=== PATIENT | female | born 1955 | race Caucasian/White ===

== ENCOUNTER 2019-09-08 17:36 | Outpatient (CLI) | payer MEDICARE | END 2019-09-08 17:37 | disposition EMS.NT | LOC: EMS 17:36 | PROVIDERS: ATTEND Surgery | DX: S01.81XA Laceration without foreign body of other part of head, initial encounter (principal); W01.0XXA Fall on same level from slipping, tripping and stumbling without subsequent striking against object, initial encounter; Y92.512 Supermarket, store or market as the place of occurrence of the external cause ==

== ENCOUNTER 2019-09-08 19:03 | Emergency (ER) | payer MEDICARE ==
[2019-09-08] MEDS ORDERED: TETANUS/DIPHTHERIA/PERTUSSIS 0.5 ML SYRINGE IM ONE (20:16)
[2019-09-08] MEDS ORDERED: LIDOCAINE 2%-EPI 1:100000 20 ML MDV SUBQ STA (20:16)
--- NOTE | 2019-09-08 20:19 | ED Physician Documentation ---
PD HPI HEAD INJURY - Stated complaint Stated Complaint: HEAD LAC - Chief complaint Chief Complaint: Laceration - History obtained from History obtained from: Patient, Family - History of Present Illness Mechanism of head injury: Fell Where head injury occurred: Home - Additional information Additional information: 63-year-old female presents to the emergency department with a flap V-shaped laceration on the bridge of her nose. She was walking this afternoon and her shoes caught the concrete and she stumbled forward. The abrasion was reportedly caused by her glasses. She had no loss of consciousness. She takes no blood thinners. She denies headache or any change in baseline neck pain. She has no paresthesias BUE. She appears well.Unknown last tetanus. PD PAST MEDICAL HISTORY - Allergies Allergies/Adverse Reactions: Allergies Allergy/AdvReac Type Severity Reaction Status Date / Time No Known Drug Allergies Allergy Verified 09/08/19 19:07 PD ED PE NORMAL - General General: Alert and oriented X 3, No acute distress - HEENT HEENT: PERRL, EOMI, Pharynx benign, Dentition benign, Other (1.5 cm V shaped flap laceration bridge of nares. No epistaxis. No septal hematoma.). No: Atraumatic (Negative for raccoon's eyes or salgado sign. No fluid draining from the ears or nose.) - Neck Neck: Supple, no meningeal sign, No bony TTP, No adenopathy - Cardiac Cardiac: RRR, No murmur - Respiratory Respiratory: No respiratory distress - Derm Derm: Normal color, Warm and dry, Other (1.5 cm V shaped lack to the bridge of the nose.) - Extremities Extremities: No deformity, No tenderness to palpate - Neuro Neuro: Alert and oriented X 3, tail ripper 2-12 intact, No motor deficit, No sensory deficit, Normal speech Eye Opening: Spontaneous Motor: Obeys Commands Verbal: Oriented GCS Score: 15 - Psych Psych: Normal mood Results - Vitals Vitals: Vital Signs - 24 hr 09/08/19 19:07 Temperature 36.5 C Heart Rate 87 Respiratory 16 Rate Blood Pressure 200/96 H O2 Saturation 95 Oxygen O2 Source Room air Procedures - Laceration (location) bridge of nose Wound type: Irregular, Flap Neurovascular status: Sensory intact Anesthesia: Lidocaine 1% with epi Wound Preparation: Chlorhexadine, Irrigated copiously NS Skin layer closure: Nylon (6.0), Sutures - enter # (6) Other: Patient tolerated well, No complications, Neurovascular intact, Dressing applied, Tetanus UTD Complexity: Simple PD MEDICAL DECISION MAKING - ED course Complexity details: reviewed results, d/w patient, d/w family ED course: 63-year-old female here with a laceration to the bridge of her nose after tripping on concrete this afternoon. - Patient has an intact septum and no epistaxis. I have low suspicion for a nasal bridge fracture. She is not anticoagulated and had no loss of consciousness and is neurologically intact. Negative for raccoon's eyes or salgado sign. Defer head CT. - Flap laceration was closed with 5 six-point 0 nylon sutures. I discussed with patient that there may be some loss of viability of the flap.If it turns black or necrotic she is to return to the emergency department for reevaluation peer. Laceration closed in a timely manner and was relatively clean. Defer antibiotics - tetanus updated in the ED Departure - Departure Clinical Impression: Nasal laceration Qualifiers: Encounter type: initial encounter Qualified Code(s): S01.21XA - Laceration without foreign body of nose, initial encounter Fall Qualifiers: Encounter type: initial encounter Qualified Code(s): W19.XXXA - Unspecified fall, initial encounter Record reviewed to determine appropriate education?: Yes Instructions: ED Laceration Sure Close Comments: Chiara I hope you feel better soon. We have placed 5 sutures in the bridge of your nose. These should be removed in 5 to 7 days. Because of the type of laceration that this is there the flap may not be viable.In this case it would turn black and would need to be cut away. In 24 hours you may gently wash your nose with warm soap and water and apply any simple antibiotic ointment Return here if you have fevers redness milky drainage or concerns of infection in the lack.
[2019-09-08] MEDS ORDERED: BACITRACIN ZINC OINT 1 PACKET TOP STA (20:40)
[2019-09-08 20:57] VITALS: BP 164/101
== END 2019-09-08 20:58 | disposition home or self-care (01) ==
LOC: ED 19:03
DX: S01.21XA Laceration without foreign body of nose, initial encounter (principal); W01.0XXA Fall on same level from slipping, tripping and stumbling without subsequent striking against object, initial encounter; Y93.01 Activity, walking, marching and hiking; Y92.009 Unspecified place in unspecified non-institutional (private) residence as the place of occurrence of the external cause; Z23 Encounter for immunization
CPT/HCPCS: 12011; 90471; 99281; 99283

== ENCOUNTER 2019-09-16 18:06 | Emergency (ER) | payer MEDICARE ==
[2019-09-16 18:16] VITALS: BP 159/104
--- NOTE | 2019-09-16 18:30 | ED Physician Documentation ---
PD HPI WOUND RECHECK - Stated complaint Stated Complaint: STITCH REMOVAL - Chief complaint Chief Complaint: Wound - Histroy obtained from History obtained from: Patient (5 sutures placed on the bridge of the nose about a week ago and here for removal. No specific complaints. Its been healing well.) Review of Systems Constitutional: reports: Reviewed and negative Eyes: reports: Reviewed and negative Ears: reports: Reviewed and negative Nose: reports: Reviewed and negative PD PAST MEDICAL HISTORY - Allergies Allergies/Adverse Reactions: Allergies Allergy/AdvReac Type Severity Reaction Status Date / Time No Known Drug Allergies Allergy Verified 09/16/19 18:16 PD ED PE NORMAL - Vitals Vital signs reviewed: Yes - General General: Alert and oriented X 3, No acute distress - HEENT HEENT: PERRL, EOMI, Other (Healing laceration on the bridge of the nose with [address], removed without issue during exam) - Neuro Neuro: Alert and oriented X 3, Normal speech Results - Vitals Vitals: Vital Signs - 24 hr 09/16/19 18:13 Temperature 36.6 C Heart Rate 84 Respiratory 16 Rate Blood Pressure 159/104 H O2 Saturation 97 Oxygen O2 Source Room air Departure - Departure Disposition: 01 Home, Self Care Clinical Impression: Visit for suture removal Condition: Good
== END 2019-09-16 18:30 | disposition home or self-care (01) ==
LOC: ED 18:06
DX: S01.21XD Laceration without foreign body of nose, subsequent encounter (principal); Z48.02 Encounter for removal of sutures

== ENCOUNTER 2019-11-06 08:00 | Outpatient (CLI) | payer MEDICARE ==
[2019-11-06 11:52] LABS: BASOPHILS # (AUTO) 0.1 10^3/uL (0.0-0.1); BASOPHILS % (AUTO) 0.9 %; EOSINOPHILS # (AUTO) 0.2 10^3/uL (0.0-0.7); HGB - HEMOGLOBIN 12.9 g/dL (12.0-16.0); LYMPHOCYTES # (AUTO) 2.1 10^3/uL (1.5-3.5); LYMPHOCYTES % (AUTO) 37.3 %; MEAN CORPUSCULAR HEMOGLOBIN 27.8 pg (27.0-31.0); MEAN CORPUSCULAR HGB CONC 31.2 g/dL (32.0-36.0); MEAN CORPUSCULAR VOLUME 89.2 fL (81.0-99.0); MEAN PLATELET VOLUME 10.8 fL (7.9-10.8); MONOCYTES # (AUTO) 0.6 10^3/uL (0.0-1.0); MONOCYTES % (AUTO) 9.6 %; NEUTROPHILS # (AUTO) 2.7 10^3/uL (1.5-6.6); PLT - PLATELET COUNT 335 10^3/uL (130-450); RED BLOOD COUNT 4.64 10^6/uL (4.20-5.40); RED CELL DISTRIBUTION WIDTH 14.2 % (12.0-15.0); WHITE BLOOD COUNT 5.7 x10^3/uL (4.8-10.8)
[2019-11-06 12:20] LABS: ALBUMIN 3.9 g/dL (3.2-5.5); ALBUMIN/GLOBULIN RATIO 1.1 (1.0-2.2); ALKALINE PHOSPHATASE 78 IU/L (42-121); ALT ALANINE AMINOTRANSFERASE 27 IU/L (10-60); AST ASPARTATE AMINOTRANSFERASE 21 IU/L (10-42); BILIRUBIN,TOTAL 0.8 mg/dL (0.2-1.0); BUN - BLOOD UREA NITROGEN 17 mg/dL (6-20); CALCIUM 8.9 mg/dL (8.5-10.3); CARBON DIOXIDE - CO2 26 mmol/L (21-32); CHLORIDE 106 mmol/L (101-111); CHOL/HDL RATIO 5.8 (<4.4); CHOLESTEROL 294 mg/dL; CREATININE 0.7 mg/dL (0.4-1.0); GLUCOSE 103 mg/dL (70-100); HDL CHOLESTEROL 51 mg/dL; LDL CHOLESTEROL,CALCULATED 215 mg/dL; LDL/HDL RATIO 4.2 (<4.4); SODIUM 140 mmol/L (135-145); TOTAL PROTEIN 7.4 g/dL (6.7-8.2); VLDL CHOLESTEROL 28 mg/dL
== END 2019-11-06 23:59 | disposition home or self-care (01) ==
LOC: LAB.WCP 08:00
PROVIDERS: ATTEND Physician Assistant
DX: I10 Essential (primary) hypertension (principal); E78.5 Hyperlipidemia, unspecified; R35.8 Other polyuria
CPT/HCPCS: 36415; 80053; 80061; 83036; 83721; 85025

== ENCOUNTER 2020-05-19 07:00 | Outpatient (CLI) | payer MEDICARE ==
[2020-05-19 14:08] LABS: ALBUMIN/GLOBULIN RATIO 1.2 (1.0-2.2); ALKALINE PHOSPHATASE 87 IU/L (42-121); ALT ALANINE AMINOTRANSFERASE 26 IU/L (10-60); AST ASPARTATE AMINOTRANSFERASE 21 IU/L (10-42); BILIRUBIN,TOTAL 0.6 mg/dL (0.2-1.0); BUN - BLOOD UREA NITROGEN 23 mg/dL (6-20); CALCIUM 9.1 mg/dL (8.5-10.3); CARBON DIOXIDE - CO2 26 mmol/L (21-32); CHLORIDE 102 mmol/L (101-111); CHOL/HDL RATIO 4.7 (<4.4); CHOLESTEROL 272 mg/dL; CREATININE 0.7 mg/dL (0.4-1.0); GFR - MDRD 84 (>89); GLUCOSE 94 mg/dL (70-100); HDL CHOLESTEROL 58 mg/dL; LDL CHOLESTEROL,CALCULATED 190 mg/dL; LDL/HDL RATIO 3.3 (<4.4); POTASSIUM 4.5 mmol/L (3.5-5.0); SODIUM 138 mmol/L (135-145); TOTAL PROTEIN 7.4 g/dL (6.7-8.2); TRIGLYCERIDES 121 mg/dL; VLDL CHOLESTEROL 24 mg/dL
[2020-05-19 14:21] LABS: ESTIMATED AVERAGE GLUCOSE 120 mg/dL (70-100); HEMOGLOBIN A1c% 5.8 % (4.27-6.07)
== END 2020-05-19 23:59 | disposition home or self-care (01) ==
LOC: LAB.WCP 07:00
PROVIDERS: ATTEND Family Medicine
DX: I10 Essential (primary) hypertension (principal); E78.5 Hyperlipidemia, unspecified; R35.8 Other polyuria
CPT/HCPCS: 36415; 80053; 80061; 83036; 83721

== ENCOUNTER 2020-10-05 08:00 | Outpatient (CLI) | payer MEDICARE ==
[2020-10-05 11:58] LABS: BASOPHILS # (AUTO) 0.1 10^3/uL (0.0-0.1); BASOPHILS % (AUTO) 0.8 %; EOSINOPHILS # (AUTO) 0.3 10^3/uL (0.0-0.7); EOSINOPHILS % (AUTO) 4.2 %; HCT - HEMATOCRIT 41.6 % (37.0-47.0); HGB - HEMOGLOBIN 12.7 g/dL (12.0-16.0); LYMPHOCYTES # (AUTO) 2.2 10^3/uL (1.5-3.5); LYMPHOCYTES % (AUTO) 34.9 %; MEAN CORPUSCULAR HGB CONC 30.5 g/dL (32.0-36.0); MEAN CORPUSCULAR VOLUME 91.8 fL (81.0-99.0); MEAN PLATELET VOLUME 10.6 fL (7.9-10.8); MONOCYTES # (AUTO) 0.6 10^3/uL (0.0-1.0); NEUTROPHILS # (AUTO) 3.2 10^3/uL (1.5-6.6); NEUTROPHILS % (AUTO) 50.8 %; PLT - PLATELET COUNT 314 10^3/uL (130-450); RED BLOOD COUNT 4.53 10^6/uL (4.20-5.40); RED CELL DISTRIBUTION WIDTH 13.2 % (12.0-15.0); WHITE BLOOD COUNT 6.4 x10^3/uL (4.8-10.8)
[2020-10-05 12:31] LABS: ALBUMIN 3.9 g/dL (3.2-5.5); ALBUMIN/GLOBULIN RATIO 1.2 (1.0-2.2); ALKALINE PHOSPHATASE 84 IU/L (42-121); ALT ALANINE AMINOTRANSFERASE 24 IU/L (10-60); AST ASPARTATE AMINOTRANSFERASE 18 IU/L (10-42); BILIRUBIN,TOTAL 0.6 mg/dL (0.2-1.0); BUN - BLOOD UREA NITROGEN 21 mg/dL (6-20); CALCIUM 9.4 mg/dL (8.5-10.3); CARBON DIOXIDE - CO2 26 mmol/L (21-32); CHLORIDE 104 mmol/L (101-111); CHOL/HDL RATIO 3.4 (<4.4); CHOLESTEROL 197 mg/dL; CREATININE 0.8 mg/dL (0.4-1.0); GFR - MDRD 72 (>89); GLUCOSE 112 mg/dL (70-100); HDL CHOLESTEROL 58 mg/dL; LDL CHOLESTEROL,CALCULATED 124 mg/dL; LDL/HDL RATIO 2.1 (<4.4); POTASSIUM 4.5 mmol/L (3.5-5.0); SODIUM 139 mmol/L (135-145); TOTAL PROTEIN 7.2 g/dL (6.7-8.2); TRIGLYCERIDES 73 mg/dL; VLDL CHOLESTEROL 15 mg/dL
== END 2020-10-05 23:59 | disposition home or self-care (01) ==
LOC: LAB.WCP 08:00
PROVIDERS: ATTEND Physician Assistant Medical
DX: E78.5 Hyperlipidemia, unspecified (principal); I10 Essential (primary) hypertension
CPT/HCPCS: 36415; 80053; 80061; 83721; 85025

== ENCOUNTER 2020-10-07 08:00 | Outpatient (CLI) | payer MEDICARE | END 2020-10-07 23:59 | disposition home or self-care (01) | LOC: LAB.WCP 08:00 | PROVIDERS: ATTEND Physician Assistant Medical | DX: R30.0 Dysuria (principal) | CPT/HCPCS: 87077; 87086; 87181 ==

== ENCOUNTER 2021-05-03 08:21 | Outpatient (CLI) | payer MEDICARE ==
[2021-05-03 12:00] LABS: BILIRUBIN,URINE NEGATIVE (NEGATIVE); GLUCOSE, URINE (UA) NEGATIVE (NEGATIVE); KETONES,URINE (UA) NEGATIVE (NEGATIVE); LEUKOCYTE ESTERASE, URINE SMALL (NEGATIVE); NITRITE,URINE NEGATIVE (NEGATIVE); OCCULT BLOOD,URINE NEGATIVE (NEGATIVE); PH,URINE 5.5 PH (5.0-7.5); PROTEIN,URINE NEGATIVE (NEGATIVE); UROBILINOGEN,URINE 0.2 (NORMAL) E.U./dL (NORMAL)
[2021-05-03 12:26] LABS: BACTERIA,URINE Rare /HPF (None Seen); CLARITY,URINE HAZY (CLEAR); RBC,URINE None Seen /HPF (0-5); SQUAMOUS EPITHELIAL CELL,UR FEW Squamous (<= Few)
[2021-05-03 12:27] LABS: CRYSTALS,URINE 6-10 Calcium Oxalate /LPF
[2021-05-03 12:32] LABS: ALBUMIN/GLOBULIN RATIO 1.3 (1.0-2.2); BILIRUBIN,TOTAL 0.9 mg/dL (0.2-1.0); CALCIUM 9.6 mg/dL (8.5-10.3); CREATININE 0.7 mg/dL (0.4-1.0); POTASSIUM 4.3 mmol/L (3.5-5.0); TOTAL PROTEIN 7.2 g/dL (6.7-8.2)
[2021-05-03 12:42] LABS: ESTIMATED AVERAGE GLUCOSE 120 mg/dL (70-100); HEMOGLOBIN A1c% 5.8 % (4.27-6.07)
== END 2021-05-03 08:22 | disposition home or self-care (01) ==
LOC: LAB.N 08:21
PROVIDERS: ATTEND Physician Assistant Medical
DX: I10 Essential (primary) hypertension (principal); R30.0 Dysuria; R73.9 Hyperglycemia, unspecified
CPT/HCPCS: 36415; 80053; 81001; 83036; 87086

== ENCOUNTER 2021-11-20 09:41 | Outpatient (CLI) | payer MEDICARE ==
[2021-11-20 13:09] LABS: ALBUMIN 4.1 g/dL (3.2-5.5); ALBUMIN/GLOBULIN RATIO 1.2 (1.0-2.2); ALKALINE PHOSPHATASE 73 IU/L (42-121); ALT ALANINE AMINOTRANSFERASE 28 IU/L (10-60); AST ASPARTATE AMINOTRANSFERASE 24 IU/L (10-42); BILIRUBIN,TOTAL 0.9 mg/dL (0.2-1.0); BUN - BLOOD UREA NITROGEN 26 mg/dL (6-20); CARBON DIOXIDE - CO2 29 mmol/L (21-32); CHLORIDE 104 mmol/L (101-111); CHOL/HDL RATIO 3.9 (<4.4); CHOLESTEROL 217 mg/dL; CREATININE 0.7 mg/dL (0.4-1.0); GFR - MDRD 83 (>89); GLUCOSE 95 mg/dL (70-100); HDL CHOLESTEROL 56 mg/dL; LDL CHOLESTEROL,CALCULATED 138 mg/dL; LDL/HDL RATIO 2.5 (<4.4); POTASSIUM 4.5 mmol/L (3.5-5.0); SODIUM 141 mmol/L (135-145); TOTAL PROTEIN 7.5 g/dL (6.7-8.2); TRIGLYCERIDES 116 mg/dL; VLDL CHOLESTEROL 23 mg/dL
== END 2021-11-20 09:42 | disposition home or self-care (01) ==
LOC: LAB.N 09:41
PROVIDERS: ATTEND Physician Assistant Medical
DX: E78.5 Hyperlipidemia, unspecified (principal)
CPT/HCPCS: 36415; 80053; 80061; 83721

== ENCOUNTER 2022-01-12 08:31 | Outpatient (CLI) | payer MEDICARE ==
[2022-01-12 09:15] VITALS: BP 118/64
--- NOTE | 2022-01-12 09:15 | SLEEP CARE CONSULTATION ---
Information from patient questionnaire entered by Jignesh Neal. I have reviewed and concur with the information entered by Jignesh Neal. This document represents the service I personally performed and the decisions made by me, Salome Miller ARNP. History of Present Illness Service Date and Time: 01/12/2022 0831 Reason for Visit: New patient, Previously diagnosed sleep apnea Chief Complaint: reports: Insomnia, Unrefreshed sleep, Snoring, Excessive daytime sleepiness, Observed pauses in breathing, Fatigue, Frequent awakenings at night Date of Onset: 15yrs Usual bedtime: 11pm Time it takes to fall asleep: 2-3hrs Snores at night: Yes Observed to quit breathing while asleep: Yes Sleeps alone due to snoring: No Number of times waking at night: 3-4 Reasons for waking at night: reports: Snoring, Pain, Other (unknown reasons) Toss, Turn, or Twitch while sleeping: Yes Recalls having dreams: Yes Usually gets out of bed at: 7am Feels refreshed in the morning: No Morning headache: Yes (daily; 1030am subsides) Sleepy or fatigued during the day: Yes Ever fallen asleep while driving: Yes (drowsy driving; no accidents) Takes day naps: Yes (on weekends mostly) Dreams during day naps: Yes Prior sleep studies: Yes ([facility] 2007) Additional HPI information: I had the pleasure of seeing FANG JIMENES today regarding the possibility of her having a sleep disorder. Her current complaints are excessive daytime sleepiness, fatigue, frequent night awakenings, insomnia, observed pauses in breathing snoring and unrefreshed sleep. She was diagnosed with sleep apnea in 2006-10 and was on a CPAP but stopped using it around 2009. She had issues with wearing her mask as a side sleeper and was getting cold condensation dripping on her face. She states she is coming back because she is more tired through the day and her has told her she is stopping breathing for long periods at night. She has trouble falling asleep because of her spinal arthritis which makes it difficult to relax enough to fall asleep. Once she gets to sleep, she will toss from side to side and get up 2-3 times a night for bathroom. She is able to go right to sleep after laying back down. - Parasomnia Symptoms Ever been unable to move upon waking from sleep: Yes (occasionally - numbness of body feeling, can move) Walks in sleep: No Talks in sleep: Yes Ever acted out dreams in sleep: Yes (rarely) Ever felt weak in the knees when startled or emotional: Yes Bothered by creepy, crawly, restless sensations in legs: Yes Problems with memory or concentration: Yes (both, memory "for sure"; has to work harder to concentrate) Subjective Initial [place] Sleepiness Scale score: 19 (01/09/2022) Past Medical History Past Medical History: reports: Hypertension, Claustrophobia, Arthritis, Asthma, Attention deficit Social History 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 Patient is and lives in [place]. Have you smoked in the past 12 months: No Cigarettes per day (20/pack): 20 Years of smokin Quit date: 2000 Smoking Pack Years: 25.0 Alcohol use: No Caffeine use: Yes Caffeine amount and frequency: 2 cups each morning Family History Family history of sleep disordered breathing: Yes Family Hx Sleep Apnea: Mother: Snoring, Sleep apnea - Treated, Sibling: Snoring, Sleep apnea - Treated Allergies and Home Medications Known drug allergies: No Drug allergies reviewed: Yes (NKDA) Home medication list reviewed: Yes (listed in chart) Review of Systems Weight gain over past 5 years: 7 Weight loss over past 5 years: 45 Cardiovascular: reports: high blood pressure, leg or foot swelling, other (extrimty numbness) Respiratory: reports: shortness of breath, wheeze Gastrointestinal: reports: heartburn, difficulty swallowing, nausea, abdominal pain Urinary: reports: incontinence, frequency, urgency, other (falls) Neurological: reports: headaches, gait or balance problems Ear/Nose/Throat: reports: nasal congestion, sinus problems, nose bleeds, dry mouth/throat, injury to nose, tonsillectomy, wisdom teeth removed Endocrine: reports: sluggishness, too hot or cold, excessive thirst, increased appetite, increased urination, unexplained weakness Musculoskeletal: reports: joint pain, neck pain, back pain, muscle pain or cramping, mobility problems Immunologic: reports: sneezing, itching Physical Exam Vital signs obtained and entered by: JIGENSH Villeda MA Blood Pressure: 118/64 (left arm) Cuff size: long Heart Rate: 75 O2 Saturation: 90 Height: 5 ft 5 in Weight: 235 lb 6.4 oz Body Mass Index: 39.2 BMI Classification: Obese Neck circumference: 16 (inches) Nostrils: patent to airflow Mouth and throat: narrow oropharynx Soft palate: long Hard palate: normal Uvula: normal Uvula visualization: 25% Mallampati Class III Tongue: enlarged in size with teeth red on lateral edges Tonsils: absent bilaterally Neck: normal w/o lymphadenopathy or thyromegaly Heart: regular rate and rhythm Lungs: clear bilaterally Impression and Plan 1. Suspected Obstructive Sleep Apnea-Hypopnea Syndrome, as previously diagnosed and as suggested by a history of loud and irregular snoring, observed cessation of breath while asleep, morning headache, frequent awakening during the night, unrefreshed sleep, cognitive impairment, and excessive daytime sleepiness. Narrow oropharynx and obesity are common predisposing factors for obstructive sleep apnea-hypopnea syndrome. I recommend proceeding to polysomnography to confirm the diagnosis and to assess severity. If the patient has significant sleep disordered breathing, a manual CPAP titration study will also be performed to find the optimal treatment pressure. I informed the patient of what the sleep studies involve and after some discussion, obtained agreement to proceed. The pathophysiology of obstructive sleep apnea-hypopnea syndrome was discussed with the patient and health risks of cardiovascular and cerebrovascular disease if not treated. Risks of drowsy driving discussed in detail and patient advised to avoid long distance driving and to pullman car clerk at the first sign of drowsiness. Patient agreed to plan. * Schedule polysomnography * Avoid long distance driving or driving when feeling sleepy. * Avoid alcohol, sedative and muscle relaxant around bedtime. * Attempt to lose weight. * Review instructions provided by trained office staff on how to prepare for the sleep study. * Return for follow-up after sleep study completed. Counseling Topics: Weight loss health impact Visit Type: In Office Time Spent with Patient (minutes): 34 Provider Statement: I spent 100% of the Face to Face Visit with the patient with greater than 50% spent counseling the patient and coordination of care.
== END 2022-01-12 08:32 | disposition home or self-care (01) ==
LOC: SC 08:31
PROVIDERS: ATTEND Nurse Practitioner Family
DX: G47.33 Obstructive sleep apnea (adult) (pediatric) (principal); E66.9 Obesity, unspecified; Z68.39 Body mass index [BMI] 39.0-39.9, adult; Z87.891 Personal history of nicotine dependence
CPT/HCPCS: 99203; G0463; 99212

== ENCOUNTER 2022-01-24 19:31 | Outpatient (CLI) | payer MEDICARE | END 2022-01-24 23:59 | disposition critical access hospital (66) | LOC: EMS 19:31 | DX: S59.902A Unspecified injury of left elbow, initial encounter (principal); M54.2 Cervicalgia; S01.21XA Laceration without foreign body of nose, initial encounter; W01.0XXA Fall on same level from slipping, tripping and stumbling without subsequent striking against object, initial encounter; Y93.01 Activity, walking, marching and hiking; Y92.008 Other place in unspecified non-institutional (private) residence as the place of occurrence of the external cause | CPT/HCPCS: A0425; A0427 ==

== ENCOUNTER 2022-01-24 19:55 | Emergency (ER) | payer MEDICARE ==
[2022-01-24] MEDS ORDERED: ONDANSETRON 4 MG/2 ML VIAL IVP STA (20:20)
--- NOTE | 2022-01-24 20:24 | ED Physician Documentation ---
PD HPI MAJOR TRAUMA - Stated complaint Stated Complaint: GLF/L ARM DEFORMITY - Chief complaint Chief Complaint: Trauma Ext - History obtained from History obtained from: Patient, EMS - Additional information Additional information: 66-year-old woman with history of hypertension, cervical fusion, hyperlipidemia was coming out of a friend's house and had a trip and fall on the ground. She has some left-sided neck pain, severe left elbow pain, and laceration to the bridge of the nose. No loss of consciousness or headache. She is up-to-date on tetanus. Review of Systems Ten Systems: 10 systems reviewed and negative Constitutional: reports: Reviewed and negative Eyes: reports: Reviewed and negative PD PAST MEDICAL HISTORY - Present Medications Home Medications: Ambulatory Orders Medication Instructions Recorded Confirmed Acetaminophen [Tylenol Arthritis] See Rx Instructions .ROUTE .COMPLEX 01/12/22 01/12/22 Acetaminophen [Tylenol] See Rx Instructions .ROUTE .COMPLEX 01/12/22 01/12/22 Alpha Lipoic Acid See Rx Instructions .ROUTE .COMPLEX 01/12/22 01/12/22 Calcium Carbonate [Calcium] See Rx Instructions .ROUTE .COMPLEX 01/12/22 01/12/22 Cholecalciferol (Vitamin D3) See Rx Instructions .ROUTE .COMPLEX 01/12/22 [Vitamin D3] Gabapentin [Gralise] See Rx Instructions .ROUTE .COMPLEX 01/12/22 01/12/22 Ibuprofen See Rx Instructions .ROUTE .COMPLEX 01/12/22 01/12/22 Iron,Carbonyl/Ascorbic Acid [Fe C See Rx Instructions .ROUTE .COMPLEX 01/12/22 01/12/22 Tablet] Losartan [Cozaar] See Rx Instructions .ROUTE .COMPLEX 01/12/22 01/12/22 Lysine [l-Lysine] See Rx Instructions .ROUTE .COMPLEX 01/12/22 01/12/22 Magnesium Citrate See Rx Instructions .ROUTE .COMPLEX 01/12/22 01/12/22 Melatonin See Rx Instructions .ROUTE .COMPLEX 01/12/22 01/12/22 Multivit-Min/Iron/Folic/Lutein See Rx Instructions .ROUTE .COMPLEX 01/12/22 01/12/22 [Multivitamin Women 50 Plus Tab] Omega3,5,6,7,9 No.1/[place] Oil See Rx Instructions .ROUTE .COMPLEX 01/12/22 01/12/22 [Complete [place] Softgel] Oxybutynin [Ditropan] See Rx Instructions .ROUTE .COMPLEX 01/12/22 01/12/22 Pravastatin [Pravachol] See Rx Instructions .ROUTE .COMPLEX 01/12/22 01/12/22 Quercetin See Rx Instructions .ROUTE .COMPLEX 01/12/22 01/12/22 Zinc Gluconate [Zinc] See Rx Instructions .ROUTE .COMPLEX 01/12/22 01/12/22 Oxycodone HCl/Acetaminophen 1 - 2 each PO Q6H PRN #14 tablet 01/25/22 [Percocet 5-325 mg Tablet] - Allergies Allergies/Adverse Reactions: Allergies Allergy/AdvReac Type Severity Reaction Status Date / Time No Known Drug Allergies Allergy Verified 01/24/22 20:06 PD ED PE NORMAL - Vitals Vital signs reviewed: Yes - General General: Alert and oriented X 3, No acute distress - HEENT HEENT: PERRL, EOMI, Other (Swelling and tenderness to the bridge of the nose with a laceration at the upper bridge of the nose. No other obvious facial bony tenderness.) - Neck Neck: No bony TTP (But will keep in c-collar pending imaging given potential for distracting injury.) - Cardiac Cardiac: RRR, No murmur - Respiratory Respiratory: No respiratory distress, Clear bilaterally - Abdomen Abdomen: Non tender - Back Back: No CVA TTP, No spinal TTP - Derm Derm: Normal color, Warm and dry - Extremities Extremities: Other (She has a deformity of the left elbow consistent with fracture dislocation with significant posterior angulation of the elbow. Normal radial pulse and good perfusion of the hand with normal neurovascular function throughout the hand.) - Neuro Neuro: Alert and oriented X 3, Normal speech Eye Opening: Spontaneous Motor: Obeys Commands Verbal: Oriented GCS Score: 15 Results - Vitals Vitals: Vital Signs - 24 hr 01/24/22 01/24/22 01/24/22 20:01 21:06 21:12 Temperature 35.6 C L Heart Rate 65 66 78 Respiratory 16 16 10 L Rate Blood Pressure 182/83 H 176/77 H 196/110 H O2 Saturation 94 96 98 01/24/22 01/24/22 01/25/22 21:22 22:06 00:00 Temperature 36.5 C Heart Rate 62 64 64 Respiratory 18 12 12 Rate Blood Pressure 163/78 H 164/77 H 182/79 H O2 Saturation 100 94 94 Oxygen O2 Source Room air - Labs Labs: Laboratory Tests 01/24/22 01/24/22 01/24/22 20:26 20:26 20:26 WBC 9.6 RBC 4.05 L Hgb 11.7 L Hct 37.1 MCV 91.6 MCH 28.9 MCHC 31.5 L RDW 13.2 Plt Count 286 MPV 9.8 Neut # (Auto) Not Reportable Lymph # (Auto) Not Reportable Dixon # (Auto) Not Reportable Eos # (Auto) Not Reportable Baso # (Auto) Not Reportable Absolute Nucleated RBC Not Reportable Total Counted 100 Band Neuts % (Manual) 0 Reactive Lymphs % (Man) 4 Abnorm Lymph % (Manual) 0 Nucleated RBC % Not Reportable Neutrophils # (Manual) 3.8 Lymphocytes # (Manual) 3.5 Monocytes # (Manual) 0.3 Eosinophils # (Manual) 2.0 H Basophils # (Manual) 0.0 Differential Comment MANUAL DIFFERENTIAL Platelet Estimate NORMAL (130-450,000) Platelet Morphology NORMAL APPEARANCE RBC Morph Micro Appear NORMAL APPEARANCE PT 12.7 H INR 1.1 Sodium 139 Potassium 3.8 Chloride 107 Carbon Dioxide 26 Anion Gap 6.0 BUN 22 H Creatinine 0.7 Estimated GFR (MDRD) 83 L Glucose 125 H Calcium 8.1 L - Rads (name of study) L elbow XR Radiology: EMP read contemporaneously (c/w dislocation) CT panscan Radiology: EMP read contemporaneously (Note, no contrast as we were out. Liver lesion needing following, Nasal frx.) L wrist/elbow/shoulder XR Radiology: EMP read contemporaneously, See rad report Procedures - Laceration (location) nasal bridge Length in cm: 1 Wound type: Linear Wound preparation: Irrigated copiously NS Skin layer closure: Dermabond Other: Patient tolerated well, No complications, Neurovascular intact, Tetanus UTD - Splint (location) LUE Splint applied by: Physician, Tech Type of splint: Fiberglass, Long arm, Volar cock up, Posterior, Other (A combination of a posterior long-arm splint and a volar cock up as during reduction of the elbow will became clear that the wrist was fractured as well.) Other: Patient tolerated well, No complications, Neurovascular intact - Reduction Body part reduced: Left, Elbow Fracture or dislocation: Dislocation Reduction aftercare: Alignment improved, Splint applied - Procedural sedation Sedation prep: Informed consent, Time out completed, Last meal (6pm), PE performed, ASA 2 - mild disease Sedation Medications: propofol (60mg ivp) Mallampati classification: II Patient status during sedation: Responds to tactile Sedation recovery: Recovered uneventfully Time in sedation (Minutes): 15 PD MEDICAL DECISION MAKING - ED course ED course: 66yo F with GLF. OBVIOUS SEVERE DISLOCATION L ELBOW. REDUCED W SEDATION P PHONE CONSULT WITH DR ARMANDO REIMAGED AND SPLINTED. L WRIST COLLES FRX WELL. NO OTHER IDENTIFIED INJURIES. INCIDENTAL LIVER LESION D/W PT AND FAMILY, AND NEEDS F/U Departure - Departure Disposition: 01 Home, Self Care Clinical Impression: Liver mass Left wrist fracture Qualifiers: Encounter type: initial encounter Fracture type: closed Qualified Code(s): S62.102A - Fracture of unspecified carpal bone, left wrist, initial encounter for closed fracture Dislocation, elbow closed Qualifiers: Encounter type: initial encounter Laterality: left Qualified Code(s): S53.105A - Unspecified dislocation of left ulnohumeral joint, initial encounter Nasal laceration Qualifiers: Encounter type: initial encounter Qualified Code(s): S01.21XA - Laceration without foreign body of nose, initial encounter Nasal bone fracture Qualifiers: Encounter type: initial encounter Fracture type: closed Qualified Code(s): S02.2XXA - Fracture of nasal bones, initial encounter for closed fracture Condition: Good Record reviewed to determine appropriate education?: Yes Instructions: ED Fx Colles Wrist Redu Requ, ED Dislocated Elbow, ED Laceration Facial Skin Glue Follow-Up: [facility] [Provider Group] - Within 1 week [facility] [Physician No Access] - Cheryl Schmitt PA-C [Primary Care Provider] - Prescriptions: Oxycodone HCl/Acetaminophen [Percocet 5-325 mg Tablet] 1 - 2 each PO Q6H PRN #14 tablet PRN Reason: pain Comments: You can call me today after 1130 am at [phone] if you think of any questions after you rest. You were seen today for injuries after a fall. You had a badly dislocated elbow, after relocation there are some small chip fractures there. Also the left wrist is broken, might need surgery. You need to followup with the orthopedics clinic within the week, keep the fiberglass splint on an dry until then. There is a spot on the liver, needs an MRI, discuss with Cheryl Schmitt at next available appointment.I sent your prescription to [facility] in [place]. If you would like to followup regarding the nose fracture, call Dr Hines, a facial bone specialist. I am prescribing a short course of narcotic pain medication for you. These are potentially dangerous and addictive medications that should be used carefully.These medications may constipate you. Take an [id number] stool softener (docusate) twice daily with plenty of water while taking these medications. If you go 24 hours without a bowel movement, take [id number] miralax, per package instructions.Do not drink or drive while taking these medications.If you received narcotic or sedating medications while in the emergency department, do not drive for 24 hours.Store this medication in a safe, secure place and out of reach of children.It is a violation of federal law to give or sell this medication to another person or to use in a manner other than prescribed.The ED will not refill narcotic prescriptions, including prescriptions lost or stolen.To dispose of unwanted medications:1. [facility] at [address] in [place] has a medication drop box. They accept prescription medications (in pill form) Saturday through Saturday 9:00 a.m. to 5:00 p.m.2. [facility] [employer] accepts prescription medications (in pill form only) for disposal year round. Call for more information.3. Contact the [facility] for the next [facility] sponsored prescription drug collection event. , [phone], or [phone];Note that many narcotic pain relievers also contain Tylenol/acetaminophen. Please ensure that your total dose of acetaminophen from all sources does not exceed 3 g (3000 mg) per day. Discharge Date/Time: 01/25/22 00:45
[2022-01-24 20:34] LABS: BASOPHILS % (AUTO) 0.7 %; EOSINOPHILS % (AUTO) 20.7 %; HCT - HEMATOCRIT 37.1 % (37.0-47.0); HGB - HEMOGLOBIN 11.7 g/dL (12.0-16.0); LYMPHOCYTES % (AUTO) 28.9 %; MEAN CORPUSCULAR HEMOGLOBIN 28.9 pg (27.0-31.0); MEAN CORPUSCULAR HGB CONC 31.5 g/dL (32.0-36.0); MEAN CORPUSCULAR VOLUME 91.6 fL (81.0-99.0); MEAN PLATELET VOLUME 9.8 fL (7.9-10.8); MONOCYTES % (AUTO) 6.7 %; NEUTROPHILS % (AUTO) 42.6 %; PLT - PLATELET COUNT 286 10^3/uL (130-450); RED BLOOD COUNT 4.05 10^6/uL (4.20-5.40); RED CELL DISTRIBUTION WIDTH 13.2 % (12.0-15.0); WHITE BLOOD COUNT 9.6 x10^3/uL (4.8-10.8)
[2022-01-24 20:36] LABS: ABNORMAL LYMPHS % (MANUAL) 0 %; BAND NEUTROPHILS % (MANUAL) 0 %
[2022-01-24 20:42] LABS: CALCIUM 8.1 mg/dL (8.5-10.3); CREATININE 0.7 mg/dL (0.4-1.0); POTASSIUM 3.8 mmol/L (3.5-5.0)
[2022-01-24] MEDS ORDERED: HYDROmorphone 1 MG/ML CARPUJECT IVP STA ×2 (20:52→23:00)
[2022-01-24 20:55] LABS: INR 1.1 (0.8-1.2); PT - PROTHROMBIN TIME 12.7 secs (9.9-12.6)
[2022-01-24] MEDS ORDERED: PROPOFOL 200 MG/20 ML VIAL IVP STA (21:02)
--- NOTE | 2022-01-24 21:25 | XRAY Report ---
PROCEDURE: Elbow 2 View LT INDICATIONS: fall, deformity TECHNIQUE: 2 views of the elbow were acquired. COMPARISON: None. FINDINGS: Bones: Left elbow joint dislocation. Small ossicle adjacent to the distal humerus which could represe nt a small fracture fragment. No suspicious bony lesions. Soft tissues: No large elbow joint effusion. No suspicious soft tissue calcifications. IMPRESSION: Left elbow joint dislocation. Possible small fracture. Recommend repeat radiographs after relocation with standard positioning if clinically feasible. Reviewed by: Good Cifuentes MD on 01/24/2022 9:24 PM PST Approved by: Good Cifuentes MD on 01/24/2022 9:24 PM PST Station ID: [id number]
[2022-01-24 21:52] LABS: LYMPHOCYTES # (MANUAL) 3.5 10^3/uL (1.5-3.5); LYMPHOCYTES % (MANUAL) 32 %; MONOCYTES # (MANUAL) 0.3 10^3/uL (0.0-1.0); NEUTROPHILS # (MANUAL) 3.8 10^3/uL (1.5-6.6); REACTIVE LYMPHS % (MANUAL) 4 %
[2022-01-24 21:53] LABS: DIFFERENTIAL COMMENT MANUAL DIFFERENTIAL; PLATELET ESTIMATE, MANUAL NORMAL (130-450,000) (NORMAL); PLATELET MORPHOLOGY NORMAL APPEARANCE (NORMAL); RBC MORPHOLOGY (MULTIPLE) NORMAL APPEARANCE (NORMAL)
[2022-01-24] MEDS ORDERED: METOCLOPRAMIDE 10 MG/2 ML VIAL IVP STA (22:34)
--- NOTE | 2022-01-24 23:04 | XRAY Report ---
PROCEDURE: Shoulder 2 View LT INDICATIONS: fall deformity TECHNIQUE: 3 views of the shoulder were acquired. COMPARISON: None. FINDINGS: Bones: No fractures or dislocations. No suspicious bony lesions. Visualized ribs appear intact. Soft tissues: No suspicious soft tissue calcifications. IMPRESSION: 1. No fracture or dislocation. Reviewed by: Rachid Tobias MD on 01/24/2022 11:[address] [facility] Approved by: Rachid Tobias MD on 01/24/2022 11:[address] [facility] Station ID: [id number]
--- NOTE | 2022-01-24 23:05 | XRAY Report ---
PROCEDURE: Wrist 4 View LT INDICATIONS: Polysystem trauma, out of contrast TECHNIQUE: 4 views of the wrist were acquired. COMPARISON: None. FINDINGS: Bones: There is an external splint which limits evaluation of fine bony detail. A comminuted fracture is demonstrated in the distal radius extending to the radiocarpal joint. There is also suspected ext ension to the distal radioulnar joint. Scaphoid view: The scaphoid appears grossly intact. Soft tissues: Evaluation of the soft tissues is limited by the external splint. IMPRESSION: 1. Comminuted intra-articular fracture of the distal radius. Reviewed by: Rachid Tobias MD on 01/24/2022 11:04 PM [facility] Approved by: Rachid Tobias MD on 01/24/2022 11:04 PM [facility] Station ID: [id number]
--- NOTE | 2022-01-24 23:28 | CT Report ---
PROCEDURE: HEAD WO INDICATIONS: fall, nasal fx TECHNIQUE: Noncontrast 4.5 mm thick angled axial sections acquired from the foramen magnum to the vertex. For r adiation dose reduction, the following was used: automated exposure control, adjustment of mA and/or kV according to patient size. COMPARISON: Concurrent CT of the facial bones. FINDINGS: Image quality: There is metallic streak artifact from patient's dental hardware. CSF spaces: Basal cisterns are patent. No extra-axial fluid collections. Ventricles are normal in size and shape. Brain: No intracranial hemorrhage, mass, or mass effect. Smalls-white matter interface appears preser gilbert. Skull and face: Calvarium and visualized facial bones appear intact. The nasal bones are incomplete ly included on the current study. Sinuses: Visualized sinuses and mastoids are clear. IMPRESSION: 1. No acute intracranial abnormality. 2. Recommend correlation with concurrent CT of the facial bones. Reviewed by: Rachid Dill MD on 01/24/2022 11:35 PM [facility] Approved by: Rachid Dill MD on 01/24/2022 11:35 PM PST Station ID: [id number]
--- NOTE | 2022-01-24 23:41 | CT Report ---
PROCEDURE: CERVICAL SPINE WO INDICATIONS: fall TECHNIQUE: Noncontrast 3 mm thick sections acquired from the skull base to the T4 level. Sagittal and coronal r eformats were then constructed. For radiation dose reduction, the following was used: automated exp osure control, adjustment of mA and/or kV according to patient size. COMPARISON: None. FINDINGS: Image quality: There is metallic streak artifact secondary to patient's surgical hardware. Bones: No fractures or subluxation. Postsurgical changes are demonstrated status post ACDF at C3-C7 with fusion of the disc spaces. There are bridging anterior osteophytes at C2-C3 and C7-T1. There is moderate multilevel facet arthropathy throughout the cervical spine. Visualized superior ribs are int act. Soft tissues: Prevertebral soft tissues are normal in thickness. No paravertebral hematomas. No ap ical pneumothoraces. IMPRESSION: 1. No acute fracture or subluxation. 2. Extensive postsurgical changes status post ACDF at C3-C7. Reviewed by: Rachid Tobias MD on 01/24/2022 11:48 PM PST Approved by: Rachid Tobias MD on 01/24/2022 11:48 PM PST Station ID: [id number]
--- NOTE | 2022-01-24 23:55 | CT Report ---
PROCEDURE: MAXILLOFACIAL WO INDICATIONS: facial inj TECHNIQUE: Noncontrast 1.5 mm thick axial images acquired from the mandible through the frontal sinuses, with co francia and sagittal reformatting. For radiation dose reduction, the following was used: automated ex posure control, adjustment of mA and/or kV according to patient size. COMPARISON: Concurrent CT of the head and cervical spine. FINDINGS: Image quality: There is metallic streak artifact from patient's dental hardware. Bones and teeth: There is a mildly depressed fracture of the bilateral nasal bones. Orbital zheng ar e intact. Sinus zheng show no fracture or deformity. Visualized portions of the mandible demonstrat e no fractures or subluxation. Zygomatic arches are intact. Pterygoid plates are intact. Visualize d portions of the skull base and auditory canals are intact. Sinuses: Paranasal sinuses are aerated, without fluid levels, mucosal thickening, or mucoceles. Mas toid air cells are aerated. Soft tissues: There is mild paranasal soft tissue swelling. Globes appear intact. Vascular: Visualized vascular structures appear normal in the absence of contrast. Bony vascular fo ramina and canals are intact. IMPRESSION: 1. Mildly depressed fracture of the bilateral nasal bones. 2. No other definite facial bone fractures identified. Reviewed by: Rachid Tobias MD on 01/25/2022 12:02 AM [facility] Approved by: Rachid Tobias MD on 01/25/2022 12:02 AM PST Station ID: [id number]
[2022-01-25 00:02] VITALS: BP 182/79
--- NOTE | 2022-01-25 00:06 | CT Report ---
PROCEDURE: UPPER EXTREMITY WO - LT INDICATIONS: post reduction TECHNIQUE: Noncontrast 2 mm axial sections were acquired through the elbow joint, with coronal and sagittal refo rmats. For radiation dose reduction, the following was used: automated exposure control, adjustment of mA and/or kV according to patient size. COMPARISON: Prior x-ray of the elbow performed the same day. FINDINGS: Image quality: Evaluation limited by suboptimal positioning. Bones: There are small corticated bony ossicles demonstrated adjacent to the coronoid and olecranon processes which may represent small chip fractures. No dislocation on the current study. Irregularity along the dorsal aspect of the capitellum suggestive of a mild impaction fracture. Soft tissues: There is a suspected small joint effusion. Mild periarticular soft tissue swelling and subcutaneous edema demonstrated. IMPRESSION: 1. Limited study due to suboptimal positioning. 2. Suspected small chip fracture fragments adjacent to the coronoid and olecranon processes. 3. Irregularity along the dorsal aspect of the capitellum suggestive of mild impaction fracture. Reviewed by: Rachid Tobias MD on 01/25/2022 12:14 AM PST Approved by: Rachid Tobias MD on 01/25/2022 12:14 AM PST Station ID: [id number]
--- NOTE | 2022-01-25 00:12 | CT Report ---
PROCEDURE: CHEST WO INDICATIONS: Polysystem trauma, out of contrast TECHNIQUE: Noncontrast 1mm axial images were acquired from the pulmonary apices to the posterior costophrenic an gles. Axial 5 mm soft tissue kernel reconstructions were performed as well as 8 mm axial MIP and cor onal and sagittal 5 mm reformations. For radiation dose reduction, the following was used: automate d exposure control, adjustment of mA and/or kV according to patient size. COMPARISON: Concurrent CT of the abdomen and pelvis FINDINGS: Image quality: There is mild motion artifact. Beam hardening artifact is also present from patient's upper extremities. CHEST: Lower Neck: No lymphadenopathy by size criteria. Thyroid: Visualized thyroid demonstrates no discrete nodules. Axillae: No lymphadenopathy by size criteria. Chest Wall: Unremarkable. Bones: No acute fractures identified. Lungs and Airways: No pulmonary contusions or lacerations. No acute consolidation. There is mild d ependent atelectasis and scattered areas of scarring bilaterally. A few small scattered peripheral in distinct nodules are demonstrated bilaterally such as a 0.4 cm nodule in the right upper lobe on seri es 3 image 84. The findings are nonspecific but likely represent sequelae of a mild infectious or inf lammatory process. The trachea and central airways are patent. Pleura: No pneumothorax or pleural effusions. Heart: Heart size is mildly enlarged. No pericardial effusion. Thoracic Vessels: There is enlargement of the pulmonary arteries suggestive of pulmonary arterial hyp ertension. The visualized aorta is normal in caliber. Mediastinum and Angy: No lymphadenopathy by size criteria. No definite mediastinal hematomas. Esophagus: No wall thickening. No hiatal hernia. Abdomen: Visualized upper abdomen demonstrates a hypoattenuating lesion within the right hepatic lob e measuring up to 3.7 cm on series 2 image 52 which is immediately characterized on the current nonco ntrast study. IMPRESSION: 1. No definite acute traumatic abnormality within the thorax. 2. Oval hypoattenuating lesion within the right hepatic lobe is incompletely characterized on the cur rent noncontrast study. The findings are suspicious for a mass lesion. The appearance is atypical for a laceration. Recommend further evaluation with a contrast-enhanced liver protocol MRI when clinical ly feasible. Reviewed by: Rachid Tobias MD on 01/25/2022 12:20 AM PST Approved by: Rachid Tobias MD on 01/25/2022 12:20 AM PST Station ID: [id number]
--- NOTE | 2022-01-25 00:21 | CT Report ---
PROCEDURE: ABDOMEN/PELVIS WO INDICATIONS: Polysystem trauma, out of contrast TECHNIQUE: Noncontrast 5 mm thick sections acquired from the diaphragms to the symphysis. 5 mm coronal and sagi ttal reformats were then performed. For radiation dose reduction, the following was used: automated exposure control, adjustment of mA and/or kV according to patient size. COMPARISON: Concurrent CT of the thorax. FINDINGS: Image quality: Evaluation limited in the absence of intravenous contrast. There is also beam hardenin g artifact from patient's bilateral upper extremities. Lung bases: There is atelectasis and scarring within the visualized lung bases. Bilateral indistinct groundglass opacities also demonstrated suggestive of mild pulmonary edema. ABDOMEN: Liver: No definite hepatic lacerations or perihepatic fluid collections with evaluation limited by a bsence of intravenous contrast. Within the right hepatic lobe, there is an oval hypoattenuating lesio n measuring up to 2.9 cm on series 3 image 22 suspicious for a mass. Gallbladder: Within normal limits without calcified gallstones. Biliary ducts: No biliary ductal dilatation. Pancreas: Unremarkable. Spleen: Normal in size. No definite splenic lacerations or perisplenic fluid collections, with eval uation limited by absence of intravenous contrast. Adrenal Glands: No adrenal nodules. Kidneys and Ureters: No hydronephrosis. Stomach and Bowel: Stomach, small bowel loops, and colon are normal in caliber and wall thickness. Peritoneum: No abnormal intraperitoneal fluid. No free air. Ventral Wall: No hernia. Abdominal Nodes: No retroperitoneal or mesenteric adenopathy by size criteria. Vessels: Aorta and inferior vena cava are normal in size. PELVIS: Pelvic Organs: Unremarkable. Bladder: Unremarkable. Pelvic Nodes: No enlarged lymph nodes. Miscellaneous: No inguinal hernias are seen. Bones: No acute fractures identified. Visualized osseous structures demonstrate no suspicious focal lesions. IMPRESSION: 1. No definite acute traumatic abnormality in the abdomen or pelvis. 2. Hypoattenuating lesion in the right hepatic lobe is incompletely characterized but suspicious for a mass. Recommend further evaluation with a liver protocol MRI or CT when clinically feasible. The ap pearance is atypical for a laceration. Reviewed by: Rachid Dill MD on 01/25/2022 12:29 AM PST Approved by: Rahcid Dill MD on 01/25/2022 12:29 AM PST Station ID: [id number]
[2022-01-25] MEDS ORDERED: oxyCODONE/ACET 5/325 Prepack 4 PO STA (00:35)
== END 2022-01-25 00:45 | disposition home or self-care (01) ==
LOC: EDUNIT# → ED 19:55
DX: S53.105A Unspecified dislocation of left ulnohumeral joint, initial encounter (principal); S02.2XXA Fracture of nasal bones, initial encounter for closed fracture; S01.21XA Laceration without foreign body of nose, initial encounter; S52.532A Colles' fracture of left radius, initial encounter for closed fracture; S52.042A Displaced fracture of coronoid process of left ulna, initial encounter for closed fracture; M54.2 Cervicalgia; W01.0XXA Fall on same level from slipping, tripping and stumbling without subsequent striking against object, initial encounter; Y92.007 Garden or yard of unspecified non-institutional (private) residence as the place of occurrence of the external cause; R16.0 Hepatomegaly, not elsewhere classified; I10 Essential (primary) hypertension; E78.5 Hyperlipidemia, unspecified; Z98.1 Arthrodesis status
CPT/HCPCS: 12011; 24600; 29125; 36415; 70450; 70486; 71250; 72125; 73030; 73070; 73110; 73200; 74176; 80048; 85025; 85610; 96374; 96375; 96376; 99152; 99284; J1170; J2765

== ENCOUNTER 2022-01-30 15:13 | Outpatient (CLI) | payer MEDICARE ==
--- NOTE | 2022-01-30 16:22 | XRAY Report ---
PROCEDURE: Elbow 3 View LT INDICATIONS: LEFT ELBOW DISLOCATION TECHNIQUE: 3 views of the elbow were acquired. COMPARISON: CT although 01/24/2022 FINDINGS: Bones: Small ossification is seen adjacent to the olecranon on lateral views that could represent a m inimally displaced fracture fragment although the donor site is identified visualized. Findings are b den evaluated on the CT from 03/26/2021. Possible coronoid process fracture is not definitely visual ized. Soft tissues: A small elbow joint effusion is present. There is prominent subcutaneous soft tissue ed jose antonio surrounding the elbow. IMPRESSION: 1.Small osseous fragment adjacent to the olecranon is suspicious for recent fracture. Findings are be tter demonstrated on CT from 01/24/2022. 2.Small joint effusion. Soft tissue edema is seen surrounding the elbow. Reviewed by: Jonny Ng MD on 01/30/2022 4:21 PM PST Approved by: Jonny Ng MD on 01/30/2022 4:21 PM PST Station ID: [id number]
--- NOTE | 2022-01-30 16:24 | XRAY Report ---
PROCEDURE: Wrist 3 View LT INDICATIONS: LEFT WRIT FRACTURE TECHNIQUE: 3 views of the wrist were acquired. COMPARISON: Left wrist radiographs 01/24/2022 FINDINGS: Bones: Comminuted intra-articular fracture is again seen at the distal radius with mild displacement. Fracture fragments do not appear significantly changed when compared to the exam from 01/14/2022. Min imally displaced ulnar styloid fracture also does not appear significantly changed. No new osseous ab normality. Soft tissues: No suspicious soft tissue calcifications. IMPRESSION: Comminuted intra-articular fracture of the distal radius and minimally displaced ulnar styloid fractu re are redemonstrated with unchanged alignment. Reviewed by: Jonny Ng MD on 01/30/2022 4:22 PM PST Approved by: Jonny Ng MD on 01/30/2022 4:22 PM PST Station ID: [id number]
== END 2022-01-30 15:14 | disposition home or self-care (01) ==
LOC: DI.WOS 15:13
PROVIDERS: ATTEND Orthopaedic Surgery
DX: S52.572D Other intraarticular fracture of lower end of left radius, subsequent encounter for closed fracture with routine healing (principal); S52.612D Displaced fracture of left ulna styloid process, subsequent encounter for closed fracture with routine healing; M25.422 Effusion, left elbow; M79.89 Other specified soft tissue disorders

== ENCOUNTER 2022-02-06 08:00 | Outpatient (CLI) | payer MEDICARE ==
--- NOTE | 2022-02-06 13:29 | XRAY Report ---
PROCEDURE: Elbow 3 View LT INDICATIONS: LEFT ELBOW DISLOCATION TECHNIQUE: 3 views of the elbow were acquired. COMPARISON: 01/30/[address] 01/24/2022 FINDINGS: Bones: Findings suspicious for nondisplaced radial head fracture. Other osseous fragments are seen ad jacent to the coronoid, tip of the olecranon, and in the medial soft tissues. Possible lateral epicon dylar avulsion fracture. No suspicious bony lesions. Soft tissues: Possible small elbow joint effusion. No suspicious soft tissue calcifications. IMPRESSION: 1. Probable nondisplaced radial head fracture. 2. Possible chip fractures off the coronoid, olecranon, and avulsion fracture off the lateral epicond yle. Reviewed by: Carolyn Parkinson MD on 02/06/2022 1:28 PM PST Approved by: Carolyn Parkinson MD on 02/06/2022 1:28 PM PST Station ID: [id number]
--- NOTE | 2022-02-06 13:32 | XRAY Report ---
PROCEDURE: Wrist 3 View LT INDICATIONS: LEFT WRIST FRACTURE POST CAST TECHNIQUE: 3 views of the wrist were acquired. COMPARISON: 01/30/2022 FINDINGS: Bones: Moderately displaced distal radial metaphyseal fracture is again similar alignment compared to the prior study. The radiocarpal alignment remains normal. Ulnar styloid fracture is less well seen due to overlying splint material. Questionable slight scapholunate space widening. Soft tissues: No suspicious soft tissue calcifications. IMPRESSION: Stable alignment of distal radius fracture post casting. Possible scapholunate interval widening. Reviewed by: Carolyn Parkinson MD on 02/06/2022 1:31 PM PST Approved by: Carolyn Parkinson MD on 02/06/2022 1:31 PM PST Station ID: [id number]
--- NOTE | 2022-02-06 14:44 | XRAY Report ---
PROCEDURE: Wrist 3 View LT INDICATIONS: LEFT WRIST FRACTURE TECHNIQUE: 3 views of the wrist were acquired. COMPARISON: 3 views of the wrist dated 01/30/2022 FINDINGS: Bones: Angulated displaced comminuted fractures of the distal radius and ulna are redemonstrated. The re is likely slightly increased distraction of the distal radial fracture when compared with the prio r study. Soft tissues: No suspicious soft tissue calcifications. IMPRESSION: Likely slightly increased distraction of the distal radial fracture when compared with the plain film dated 01/30/2022. Reviewed by: Marita Sosa MD on 02/06/2022 2:43 PM PST Approved by: Marita Sosa MD on 02/06/2022 2:43 PM PST Station ID: [id number]
== END 2022-02-06 23:59 | disposition home or self-care (01) ==
LOC: DI.WOS 08:00
PROVIDERS: ATTEND Orthopaedic Surgery
DX: S52.572A Other intraarticular fracture of lower end of left radius, initial encounter for closed fracture (principal); S52.602A Unspecified fracture of lower end of left ulna, initial encounter for closed fracture

== ENCOUNTER 2022-03-13 08:00 | Outpatient (CLI) | payer MEDICARE ==
--- NOTE | 2022-03-13 14:36 | XRAY Report ---
PROCEDURE: Elbow 3 View LT INDICATIONS: LEFT ELBOW DISLOCATION TECHNIQUE: 3 views of the elbow were acquired. COMPARISON: Elbow x-ray 02/14/2022, CT upper extremity 01/25/2022 FINDINGS: Bones: Osseous fragment is noted posterior to the olecranon with a slight increased fragmented appear ance of the superior posterior olecranon compared to prior exam. The area of ossification posterior t o the olecranon is not as well seen on prior elbow x-rays but appears stable compared to CT exam of 1 03/26/2021. Fragmented appearance of the more superior part of the olecranon/capitellum/coronoid regio n is also similar to prior CT. Soft tissues: No elbow joint effusion. No suspicious soft tissue calcifications. IMPRESSION: Stable anatomic alignment with areas of fracture likely representing possible capitellum/olecranon/co ronoid fractures. Reviewed by: Nasreen Madrigal MD on 03/13/2022 2:35 PM PST Approved by: Nasreen Madrigal MD on 03/13/2022 2:35 PM PST Station ID: [id number]
--- NOTE | 2022-03-13 14:38 | XRAY Report ---
PROCEDURE: Wrist 3 View LT INDICATIONS: LEFT WRIST FRACTURE TECHNIQUE: 3 views of the wrist were acquired. COMPARISON: X-ray wrist 02/14/2022 FINDINGS: Bones: Overlying cast material has been removed. There is a comminuted distal radial fracture with in tra-articular extension most notably into the radial styloid. Ulnar styloid fracture is also present. Alignment is stable. Soft tissues: No suspicious soft tissue calcifications. IMPRESSION: Stable alignment of comminuted intra-articular radial fracture as well as ulnar styloid fracture. Reviewed by: Nasreen Mdarigal MD on 03/13/2022 2:36 PM [facility] Approved by: Nasreen Madrigal MD on 03/13/2022 2:36 PM [facility] Station ID: [id number]
== END 2022-03-13 23:59 | disposition home or self-care (01) ==
LOC: DI.WOS 08:00
PROVIDERS: ATTEND Orthopaedic Surgery
DX: S53.125A Posterior dislocation of left ulnohumeral joint, initial encounter (principal); S52.572D Other intraarticular fracture of lower end of left radius, subsequent encounter for closed fracture with routine healing; S52.612D Displaced fracture of left ulna styloid process, subsequent encounter for closed fracture with routine healing

== ENCOUNTER 2022-03-24 07:07 | Outpatient (CLI) | payer MEDICARE ==
[~2022-03-24 07:07] MED LIST: GADOBUTROL 15 MMOL/15 ML VIAL ONE
[2022-03-24 08:02] LABS: ALBUMIN/GLOBULIN RATIO 1.3 (1.0-2.2); BILIRUBIN,TOTAL 0.7 mg/dL (0.2-1.0); CREATININE 0.7 mg/dL (0.4-1.0); POTASSIUM 4.1 mmol/L (3.5-5.0)
[2022-03-24] MEDS ORDERED: GADOBUTROL 15 MMOL/15 ML VIAL IVP ONE (11:55)
--- NOTE | 2022-03-26 09:39 | MRI Report ---
PROCEDURE: ABDOMEN W/WO INDICATIONS: POST MENOPAUSAL, LIVER LESION CONTRAST: GADAVIST 10.4 ML TECHNIQUE: Coronal ultra fast SE, axial 2D spoiled GE in- and [id number]; axial breath-hold T2 fast SE. Dynam ic axial ultra fast GE during the administration of contrast; post-contrast coronal ultra fast GE or 2D spoiled GE with fat saturation from the hepatic dome to the iliac crests. Optional diffusion weig hted imaging and ADC may be performed. COMPARISON: CT 01/24/2022 FINDINGS: Image quality: Excellent. Lung bases: No basal pleural effusions. Heart size is normal. Solid organs: In the right lobe of the liver segment 7/8, there is a thin-walled, gently lobulated w ell-defined T2 hyperintense lesion measuring 2.6 x 2.7 x 2.6 cm. There is T1 hypointensity. Postcontr ast, the lesion demonstrates peripheral discontinuous enhancement on the arterial phase with gradual wash-in of contrast on venous and delayed phases. There are no other liver lesions. The gallbladder is normal without stones or sludge. Biliary system is nondilated. The pancreas, adren al glands, left kidney, and spleen appear normal. The right kidney contains a small cortical medullar y upper pole cyst. There is variant arterial vascular supply to the right kidney. Nodes and vessels: No retroperitoneal or mesenteric adenopathy by size criteria. Aorta and inferior vena cava are normal in size. Bowel and peritoneum: The stomach is decompressed. Immediately adjacent to, and potentially arising f rom, the ventral surface of the greater curvature along the antrum, there is a T2 hyperintense, T1 hy pointense mass measuring 3.6 x 2.1 x 3.8 cm. It demonstrates moderate diffuse enhancement on all 3 ph ases. There is a small eccentric cystic component measuring by 1.2 cm along the left aspect. The kim darya of the lesion appears solid. The visible large and small bowel loops are otherwise normal. Unen hanced bowel loops are normal in caliber. No free fluid. Bones and soft tissues: No ventral hernias. Bone marrow is normal in overall signal. IMPRESSION: 1. 2.7 cm hepatic hemangioma corresponds to the incidental liver mass on recent CT. 2. Incidental 3.6 cm solid enhancing exophytic mass arising from the ventral surface of the stomach. Findings are concerning for a neoplasm such as gastrointestinal stromal tumor. This lesion would be a menable to percutaneous biopsy. Reviewed by: Carolyn Parkinson MD on 03/26/2022 9:38 AM PST Approved by: Carolyn Parkinson MD on 03/26/2022 9:38 AM PST Station ID: [id number]
== END 2022-03-24 07:08 | disposition home or self-care (01) ==
LOC: LAB 07:07
PROVIDERS: ATTEND Physician Assistant Medical
DX: E78.5 Hyperlipidemia, unspecified (principal); K76.9 Liver disease, unspecified; D18.09 Hemangioma of other sites; R19.09 Other intra-abdominal and pelvic swelling, mass and lump
CPT/HCPCS: 36415; 74183; 80053; A9585

== ENCOUNTER 2022-04-16 07:24 | Outpatient (CLI) | payer MEDICARE ==
--- NOTE | 2022-04-16 13:15 | DEXA Report ---
PROCEDURE: Dexa Spine and/or Hip INDICATIONS: POST MENOPAUSAL TECHNIQUE: Dual energy x-ray absorptiometry (DXA) was performed on a [employer] System. Regions measur ed are the AP Spine, femoral neck, and if needed forearm. COMPARISON: None. FINDINGS: Lumbar Spine: Bone Mineral Density 1.360 g/cm/cm,T score 1.5, normal Left Femoral Neck: Bone Mineral Density 0.918 g/cm/cm, T score -0.9, normal Left Hip: Bone Mineral Density 0.986 g/cm/cm,T score -0.2, normal (T score greater or equal to -1.0: NORMAL) (T score from -1.1 to -2.4: OSTEOPENIA) (T score less than or equal to -2.5 to: OSTEOPOROSIS) Impression: Normal bone mineral density, although noting left femoral neck is at the upper limits of normal. Patients with diagnosis of osteoporosis or osteopenia should have regular bone mineral density assess ment. For those eligible for Medicare, routine testing is allowed once every 2 years. Testing frequ ency can be increased for patients who have rapidly progressing disease or for those who are receivin g medical therapy to restore bone mass. Reviewed by: Nasreen Madrigal MD on 04/16/2022 1:13 PM PST Approved by: Nasreen Madrigal MD on 04/16/2022 1:13 PM PST Station ID: [id number]
== END 2022-04-16 07:25 | disposition home or self-care (01) ==
LOC: DI 07:24
PROVIDERS: ATTEND Physician Assistant Medical
DX: Z78.0 Asymptomatic menopausal state (principal)

== ENCOUNTER 2022-04-19 07:11 | Outpatient (CLI) | payer MEDICARE ==
[2022-04-19] MEDS ORDERED: LIDOCAINE-MPF 1% 5 ML VIAL ONE (07:49)
[2022-04-19 08:02] LABS: PT - PROTHROMBIN TIME 11.6 secs (9.9-12.6)
[2022-04-19 08:09] LABS: PARTIAL THROMBOPLASTIN TIME 33.5 secs (24.9-33.3)
[2022-04-19] MEDS ORDERED: MIDAZOLAM 2 MG/2 ML VIAL ONE (08:14)
[2022-04-19] MEDS ORDERED: LIDOCAINE-MPF 1% 5 ML VIAL TD ONE (09:32)
[2022-04-19] MEDS ORDERED: LACTATED RINGERS 1,000 ML IV ONE (09:42)
[2022-04-19 11:44] VITALS: BP 166/88
[2022-04-19] MEDS ORDERED: MIDAZOLAM 2 MG/2 ML VIAL IVP ONE (14:00)
--- NOTE | 2022-04-19 17:26 | Ultrasound Report ---
PROCEDURE: ABD/RETROPERITONEAL MASS BX INDICATIONS: GASTRIC MASS TECHNIQUE: Informed written consent was obtained. The anterior abdominal wall was prepped and draped sterilely and diffuse with lidocaine. Under sonographic guidance, a 20-gauge biopsy needle was advanc ed into the anterior abdominal wall mass. Several core specimens were obtained, which represent to waldo valdez for analysis. Needle was withdrawn and pressure was applied for hemostasis. COMPARISON: None. FINDINGS: Prior to obtaining biopsy specimens, the needle is within the mass by ultrasound. IMPRESSION: Ultrasound guided biopsy of anterior abdominal wall mass. Reviewed by: Mike Bhakta MD on 04/19/2022 4:35 PM PST Approved by: Mike Bhakta MD on 04/19/2022 4:35 PM PST Station ID: [id number]
== END 2022-04-19 07:12 | disposition home or self-care (01) ==
LOC: DI 07:11
PROVIDERS: ATTEND Family Medicine
DX: C44.599 Other specified malignant neoplasm of skin of other part of trunk (principal); K31.89 Other diseases of stomach and duodenum
CPT/HCPCS: 36415; 49180; 85049; 85610; 85730; J7120

== ENCOUNTER 2022-05-24 14:13 | Outpatient (CLI) | payer MEDICARE ==
--- NOTE | 2022-05-24 15:22 | XRAY Report ---
PROCEDURE: Lumbar Spine 2 View INDICATIONS: PARESTHESIA,BILATERAL LEGS TECHNIQUE: 2 views of the lumbar spine were acquired. COMPARISON: None. FINDINGS: Bones: 5 [id number] vertebrae are present. There is normal bony alignment. No vertebral body compression fractures. No suspicious bony lesions. Extensive degenerative change with multilevel dis c height loss and multilevel facet arthropathy. Suspect canal stenosis. Soft tissues: Overlying bowel gas pattern is normal. No suspicious soft tissue calcifications. IMPRESSION: Extensive degenerative change. Suspect canal stenosis. Comment: Lumbar spine MRI may be helpful. Reviewed by: Andre Levy MD on 05/24/2022 3:20 PM PDT Approved by: Andre Levy MD on 05/24/2022 3:20 PM PDT Station ID: [id number]
== END 2022-05-24 14:14 | disposition home or self-care (01) ==
LOC: DI 14:13
PROVIDERS: ATTEND Physician Assistant Medical
DX: M47.816 Spondylosis without myelopathy or radiculopathy, lumbar region (principal)

== ENCOUNTER 2022-06-02 15:27 | Outpatient (CLI) | payer MEDICARE ==
--- NOTE | 2022-06-04 13:45 | MRI Report ---
PROCEDURE: LUMBAR SPINE WO INDICATIONS: BILATERAL LEGS PARESTHESIA TECHNIQUE: Noncontrast sagittal T1 spin echo and T2 fast echo, sagittal STIR, axial T1 and T2 fast spin echo thr ough the lumbar spine. In cases with scoliosis, additional coronal T2 fast spin echo may be performe d. COMPARISON: Lumbar spine 2 views dated 05/24/2022. FINDINGS: Image quality: Excellent. Alignment and Curvature: 4 mm anterolisthesis of L4 on L5. Bone Marrow: Marrow is of normal overall signal. No acute vertebral body compression fractures. Spinal Cord: Conus medullaris terminates at the L1-L2 level. Visualized cord demonstrates normal si gnal and size. Paraspinous Soft Tissues: No paravertebral masses. T11-T12: No canal stenosis or foraminal stenosis. T12-L1: Bilateral facet hypertrophy. No canal stenosis or foraminal stenosis. L1-L2: There is a moderate right paracentral disc protrusion with associated superior extruded dis c material up to the approximately mid level of L1 with some mass effect on the conus. There is also facet arthropathy. There is moderate canal stenosis in this location. Mild bilateral foraminal steno sis. L2-L3: Disc bulge, facet hypertrophy. Moderate canal stenosis. Mild bilateral foraminal stenosis. L3-L4: Disc bulge. Facet hypertrophy and prominent ligamentous hypertrophy. Moderate canal stenosis . Moderate bilateral foraminal stenosis with mild flattening deformity on the exiting bilateral L3 ne rve roots. L4-L5: Anterolisthesis of L4 on L5. Posterior disc bulge. Prominent bilateral facet and ligament hy pertrophy. Severe canal stenosis. Moderate bilateral foraminal stenosis with flattening deformity on the exiting bilateral L4 nerve root. L5-S1: Disc bulge. Facet hypertrophy. Mild canal stenosis. Mild bilateral foraminal stenosis. IMPRESSION: 1. At the level of the conus, L1-L2, there is a moderate right paracentral disc protrusion with assoc iated superior extruded disc material which exerts some mass effect on the conus. There is moderate c anal stenosis. 2. There is diffuse underlying facet arthropathy. 3. There is multilevel canal stenosis, moderate at L1-L2, moderate at L2-L3, moderate at L3-L4, sever e at L4-L5, and mild at L5-S1. 4. Multilevel foraminal narrowing as described above. Reviewed by: Andre Levy MD on 06/04/2022 8:40 AM PDT Approved by: Andre Levy MD on 06/04/2022 8:40 AM PDT Station ID: [id number]
== END 2022-06-02 15:28 | disposition home or self-care (01) ==
LOC: DI 15:27
PROVIDERS: ATTEND Family Medicine
DX: M51.26 Other intervertebral disc displacement, lumbar region (principal); M51.36 Other intervertebral disc degeneration, lumbar region; M48.061 Spinal stenosis, lumbar region without neurogenic claudication; M47.816 Spondylosis without myelopathy or radiculopathy, lumbar region; M51.37 Other intervertebral disc degeneration, lumbosacral region; M48.07 Spinal stenosis, lumbosacral region; M47.817 Spondylosis without myelopathy or radiculopathy, lumbosacral region

== ENCOUNTER 2022-08-16 08:00 | Outpatient (CLI) | payer MEDICARE ==
--- NOTE | 2022-08-16 11:29 | XRAY Report ---
PROCEDURE: Wrist 3 View LT INDICATIONS: LEFT WRIST FRACTURE TECHNIQUE: 3 views of the wrist were acquired. COMPARISON: Wrist radiographs 03/13/2022. FINDINGS: Bones: Healed distal radius fracture. Mild residual angulation and deformity. Healed ulnar styloid f racture. No dislocations. Mild degenerative changes. No suspicious bony lesions. Soft tissues: No suspicious soft tissue calcifications or masses. IMPRESSION: Healed distal radius and ulnar styloid fractures. Reviewed by: Good Cifuentes MD on 08/16/2022 11:28 AM [facility] Approved by: Good Cifuentes MD on 08/16/2022 11:28 AM [facility] Station ID: [id number]
== END 2022-08-16 23:59 | disposition home or self-care (01) ==
LOC: DI.WOS 08:00
PROVIDERS: ATTEND Orthopaedic Surgery
DX: S52.502D Unspecified fracture of the lower end of left radius, subsequent encounter for closed fracture with routine healing (principal); S52.612D Displaced fracture of left ulna styloid process, subsequent encounter for closed fracture with routine healing

== ENCOUNTER 2022-08-31 18:06 | Outpatient (CLI) | payer MEDICARE ==
[2022-08-31 18:25] LABS: BASOPHILS # (AUTO) 0.1 10^3/uL (0.0-0.1); BASOPHILS % (AUTO) 0.7 %; EOSINOPHILS # (AUTO) 0.3 10^3/uL (0.0-0.7); EOSINOPHILS % (AUTO) 4.4 %; HCT - HEMATOCRIT 38.6 % (37.0-47.0); HGB - HEMOGLOBIN 12.3 g/dL (12.0-16.0); LYMPHOCYTES # (AUTO) 2.8 10^3/uL (1.5-3.5); LYMPHOCYTES % (AUTO) 38.3 %; MEAN CORPUSCULAR HEMOGLOBIN 28.5 pg (27.0-31.0); MEAN CORPUSCULAR HGB CONC 31.9 g/dL (32.0-36.0); MEAN CORPUSCULAR VOLUME 89.4 fL (81.0-99.0); MEAN PLATELET VOLUME 9.8 fL (7.9-10.8); MONOCYTES # (AUTO) 0.6 10^3/uL (0.0-1.0); NEUTROPHILS # (AUTO) 3.5 10^3/uL (1.5-6.6); NEUTROPHILS % (AUTO) 48.3 %; PLT - PLATELET COUNT 286 10^3/uL (130-450); RED BLOOD COUNT 4.32 10^6/uL (4.20-5.40); RED CELL DISTRIBUTION WIDTH 12.9 % (12.0-15.0); WHITE BLOOD COUNT 7.2 x10^3/uL (4.8-10.8)
[2022-08-31 18:41] LABS: CREATININE 0.8 mg/dL (0.4-1.0); POTASSIUM 4.1 mmol/L (3.5-5.0)
[2022-08-31 20:29] LABS: ESTIMATED AVERAGE GLUCOSE 120 mg/dL (70-100); HEMOGLOBIN A1c% 5.8 % (4.27-6.07)
== END 2022-08-31 18:07 | disposition home or self-care (01) ==
LOC: LAB 18:06
PROVIDERS: ATTEND Orthopaedic Surgery Orthopaedic Surgery of the Spine
DX: Z01.818 Encounter for other preprocedural examination (principal); R73.9 Hyperglycemia, unspecified
CPT/HCPCS: 36415; 80048; 83036; 85025; 93005

== ENCOUNTER 2022-09-04 08:00 | Outpatient (CLI) | payer MEDICARE | END 2022-09-04 23:59 | disposition home or self-care (01) | LOC: LAB.N 08:00 | PROVIDERS: ATTEND Specialist | DX: R30.0 Dysuria (principal) | CPT/HCPCS: 87086; 87181 ==

== ENCOUNTER 2023-01-11 08:00 | Outpatient (CLI) | payer MEDICARE ==
[2023-01-11 21:01] LABS: BASOPHILS # (AUTO) 0.1 10^3/uL (0.0-0.1); BASOPHILS % (AUTO) 0.7 %; EOSINOPHILS # (AUTO) 0.3 10^3/uL (0.0-0.7); EOSINOPHILS % (AUTO) 3.8 %; HCT - HEMATOCRIT 41.5 % (37.0-47.0); HGB - HEMOGLOBIN 12.9 g/dL (12.0-16.0); LYMPHOCYTES % (AUTO) 39.1 %; MEAN CORPUSCULAR HEMOGLOBIN 27.9 pg (27.0-31.0); MEAN CORPUSCULAR HGB CONC 31.1 g/dL (32.0-36.0); MEAN CORPUSCULAR VOLUME 89.6 fL (81.0-99.0); MEAN PLATELET VOLUME 10.5 fL (7.9-10.8); MONOCYTES # (AUTO) 0.6 10^3/uL (0.0-1.0); MONOCYTES % (AUTO) 7.9 %; NEUTROPHILS # (AUTO) 3.6 10^3/uL (1.5-6.6); NEUTROPHILS % (AUTO) 48.2 %; PLT - PLATELET COUNT 300 10^3/uL (130-450); RED BLOOD COUNT 4.63 10^6/uL (4.20-5.40); RED CELL DISTRIBUTION WIDTH 13.5 % (12.0-15.0); WHITE BLOOD COUNT 7.6 x10^3/uL (4.8-10.8)
[2023-01-12 01:54] LABS: ALBUMIN 4.3 g/dL (3.2-5.5); ALBUMIN/GLOBULIN RATIO 1.3 (1.0-2.2); BILIRUBIN,TOTAL 0.4 mg/dL (0.2-1.0); CALCIUM 9.6 mg/dL (8.5-10.3); CREATININE 0.7 mg/dL (0.6-1.3); POTASSIUM 4.2 mmol/L (3.5-4.5); TOTAL PROTEIN 7.6 g/dL (6.4-8.9)
[2023-01-12 01:56] LABS: THYROID STIMULATING HORMONE 1.8 uIU/mL (0.34-5.60)
== END 2023-01-11 23:59 | disposition home or self-care (01) ==
LOC: LAB.N 08:00
PROVIDERS: ATTEND Family Medicine
DX: R06.00 Dyspnea, unspecified (principal); R53.83 Other fatigue
CPT/HCPCS: 36415; 80053; 84443; 85025

== ENCOUNTER 2023-01-12 12:27 | Outpatient (CLI) | payer MEDICARE ==
--- NOTE | 2023-01-13 14:59 | XRAY Report ---
PROCEDURE: Chest 2 View X-Ray INDICATIONS: DYSPNEA,FATIGUE TECHNIQUE: 2 views of the chest were acquired. COMPARISON: None. FINDINGS: Surgical changes and devices: None. Lungs and pleura: No pleural effusions or pneumothorax. Lungs are clear. Mediastinum: Mediastinal contours appear normal. Heart size is normal. Bones and chest wall: No suspicious bony lesions. Overlying soft tissues appear unremarkable. IMPRESSION: No acute cardiopulmonary process. Reviewed by: Marita Sosa MD on 01/13/2023 2:57 PM [facility] Approved by: Marita Sosa MD on 01/13/2023 2:57 PM [facility] Station ID: [id number]
== END 2023-01-12 12:28 | disposition home or self-care (01) ==
LOC: DI 12:27
PROVIDERS: ATTEND Family Medicine
DX: R06.00 Dyspnea, unspecified (principal); R53.83 Other fatigue

== ENCOUNTER 2023-05-23 06:22 | Day surgery (SDC) | payer MEDICARE ==
[2023-05-23] MEDS ORDERED: BRIMONIDINE 0.2% OPHTH DROPS 5 ML ONE (06:56)
[2023-05-23] MEDS ORDERED: TRIAMCIN/MOXIFLOX OPHTHALMIC 0.6 ML VIAL IO ONE (06:56)
[2023-05-23] MEDS ORDERED: EPINEPHrine 1 MG/ML AMP ONE (06:56)
[2023-05-23] MEDS ORDERED: BSS/LIDOCAINE/EPINEPHRINE 1 ML VIAL ONE (06:56)
[2023-05-23] MEDS ORDERED: TIMOLOL 0.5% OPHTH DROPS ONE (06:56)
[2023-05-23] MEDS: PROPARACAINE 0.5% OPHTH DROPS 15 ML ONE (07:04)
[2023-05-23] MEDS: LACTATED RINGERS 1,000 ML IV ONE (07:04)
[2023-05-23] MEDS: KETOROLAC 0.45% OPHTH DROPS ONE (07:05)
[2023-05-23] MEDS: PHENYLEPHRINE 2.5% OPHTH 2 ML DROPS ONE (07:05)
[2023-05-23] MEDS ORDERED: MIDAZOLAM 2 MG/2 ML VIAL ONE (07:07)
--- NOTE | 2023-05-23 07:25 | ANESTHESIA ---
Pre-Anesthesia VS, & Labs - Diagnosis left eye senile combined cataract - Procedure left eye cataract extraction with IOL implant Vital Signs: Temp Pulse Resp BP Pulse Ox O2 Flow Rate 36.4 C L 66 16 152/74 H 97 05/23/23 07:09 05/23/23 07:09 05/23/23 07:09 05/23/23 07:09 05/23/23 07:09 Height: 5 ft 4 in Weight (kg): 117.1 kg Body Mass Index: 44.3 BMI Classification: Morbidly Obese - NPO >8 hours - Is Patient ?: No Home Medications and Allergies Home Medications: Ambulatory Orders Albuterol Sulfate [Proair Digihaler] 2 puffs IH Q4HR PRN 05/22/23 Ascorbic Acid [Vitamin C] 2,200 mg PO BID 05/22/23 Calcium Carbonate [Calcium] 600 mg ORAL BID 01/12/22 Cholecalciferol (Vitamin D3) [Vitamin D3] 1,200 mcg ORAL DAILY 01/12/22 Gabapentin [Gralise] 300 mg ORAL BID MDD 1200 01/12/22 Ibuprofen 400 mg ORAL Q6HR PRN MDD 800mg 01/12/22 Iron,Carbonyl/Ascorbic Acid [Fe C Tablet] 1 tab ORAL DAILY 01/12/22 Losartan [Cozaar] 50 mg ORAL DAILY 01/12/22 Magnesium Citrate 100 mg ORAL DAILY 01/12/22 Melatonin 10 mg ORAL HS PRN 01/12/22 Multivit-Min/Iron/Folic/Lutein [Multivitamin Women 50 Plus Tab] 1 tab ORAL DAILY 01/12/22 Omega3,5,6,7,9 No.1/[place] Oil [Complete [place] Softgel] 1 tab ORAL DAILY 01/12/22 Pravastatin [Pravachol] 40 mg ORAL HS 01/12/22 Zinc Gluconate [Zinc] 1 tab ORAL BID 01/12/22 amLODIPine [Norvasc] 5 mg ORAL HS 05/08/22 oxyBUTYnin chloride [Oxybutynin Chloride] 5 mg PO BID 05/08/22 Albuterol Sulfate [Proair Digihaler] 2 puffs IH Q4HR PRN 05/22/23 Ascorbic Acid [Vitamin C] 2,200 mg PO BID 05/22/23 Allergies/Adverse Reactions: Allergies Allergy/AdvReac Type Severity Reaction Status Date / Time fentanyl AdvReac Mild Dizziness Verified 05/23/23 06:41 Anes History & Medical History - Anesthetic History Anesthesia Complications: reports: No previous complications - Medical History Cardiovascular: reports: Hypertension, High cholesterol, Murmur Pulmonary: reports: Asthma, Shortness of breath, Sleep apnea (does not use cpap) Gastrointestinal: reports: GERD Urinary: reports: Incontinence, Frequency, Kidney stones Musculoskeletal: reports: Chronic back pain Endocrine/Autoimmune: reports: None Skin: reports: None - Surgical History General: reports: Appendectomy Eyes Ears Nose Throat (EENT): reports: Tonsil/Adenoidectomy Urologic: Orthopedic: reports: Spine surgery Exam General: Alert, Oriented x3, Cooperative, No acute distress Dental: Poor dentition Mouth Openin Fingerbreadth Neck Mobility: Normal Mallampati classification: III Thyromental Distance: 4-6 cm Mental/Cognitive Status: Alert/Oriented X3, Normal for patient Plan Anesthesia Type: MAC Consent for Procedure(s) Verified and Reviewed: Yes Code Status: Attempt Resuscitation ASA classification: 3-Severe systemic disease Is this case an emergency?: No
[2023-05-23] MEDS: EPINEPHrine 1 MG/ML AMP IR ONE (07:37)
[2023-05-23] MEDS: BRIMONIDINE 0.2% OPHTH DROPS 5 ML OPTH ONE (07:37)
[2023-05-23] MEDS: TRIAMCIN/MOXIFLOX OPHTHALMIC 0.6 ML VIAL IO ONE (07:38)
[2023-05-23] MEDS: TIMOLOL 0.5% OPHTH DROPS OPTH ONE (07:38)
[2023-05-23] MEDS: BSS/LIDOCAINE/EPINEPHRINE 1 ML SYRINGE IO ONE (07:38)
[2023-05-23] MEDS: PROPARACAINE 0.5% OPHTH DROPS 15 ML EACHEYE ONE (07:39)
[2023-05-23] MEDS: VANCOMYCIN OPHTH (TOPICAL) 10 MG/ML SYRINGE TOP ONE (07:39)
[2023-05-23] MEDS: LACTATED RINGERS 700 ML IV ONE (07:50)
--- NOTE | 2023-05-23 08:00 | OPERATIVE REPORT ---
Operative Report - Other Other Information/Narrative: Date of Surgery: 05/23/23 Preop Dx: Visually significant cataract left eye. This was the first cataract surgery. Postop Dx: Same Procedure: Phacoemulsification with posterior chamber intraocular lens implant left eye Surgeon: Dr. Mark Rodrigues Anesthesia: Monitored anesthesia care Complications: None Operative Indications: This is a 67-year-old F with progressive vision loss in the left eye due to 2+ nuclear sclerotic, 2+ cortical, and vacuolar cataract. Best corrected visual acuity was 20/30 with glare to 20/500 vision in the left eye. Indications for surgery were: - Overall decrease in vision - Difficulty seeing words on a computer screen - Difficulty reading - Difficulty seeing words, closed captions, or game scores on TV - Difficulty driving in low light or at night - Difficulty driving at night because of headlights from other vehicles - Difficulty with glare or bright lights in any situation The patient was consented at length concerning the risks and benefits of cataract surgery after which the patient expressed a desire to proceed with surgery. Operative Procedure: The patient was taken into OR#3 and placed under monitored anesthesia care. A surgical time-out was conducted confirming correct patient, correct procedure, and correct surgical site. The patient was given topical anesthesia and then prepped and draped in the usual sterile fashion. The eye was entered at the 6 and 3 oclock positions. Intracameral Shugarcaine was injected into the anterior chamber followed by a dispersive viscoelastic. A continuous-tear curvilinear capsulorhexis was performed. The nucleus was hydrodissected and phacoemulsified. The cortex was evacuated using automated i nfusion and aspiration. A cohesive viscoelastic was injected into the capsular bag and a 20.5 diopter intraocular lens was inserted into the bag. Infusion and aspiration were used to evacuate the viscoelastic materials from the eye. The wounds were hydrated and the eye inflated to physiologic pressure using balanced salt solution. Approximately 0.25ml of a mixture of triamcinolone and moxifloxacin was injected trans-sclerally into the vitreous in the inferotemporal quadrant using a 30 gauge cannula. An additional 0.25ml of a mixture of triamcinolone and moxifloxacin was injected subconjunctivally in the superior quadrant for infection and inflammation prophylaxis. Wound integrity was checked with Weck-Julia sponges. The patient was taken from the operating room in good condition and given post-op instructions.
[2023-05-23 08:04] VITALS: BP 135/73; O2SAT 100
--- NOTE | 2023-05-23 15:42 | ANESTHESIA POST OP EVALUATION ---
Anesthesia Post Eval - Post Anesthesia Eval Vitals: Last Vital Signs Temp 36.7 C 05/23/23 07:50 Pulse 71 05/23/23 07:59 Resp 16 05/23/23 07:59 BP 135/73 H 05/23/23 07:59 Pulse Ox 100 05/23/23 07:59 O2 Flow Rate CV Function Including HR & BP: Stable Pain Control: Satisfactory Nausea & Vomiting: Negative Mental Status: Baseline Respiratory Status: Airway Patent Hydration Status: Satisfactory Anesthesia Complications: None
== END 2023-05-23 06:23 | disposition home or self-care (01) ==
LOC: SDS 06:22
PROVIDERS: ATTEND Ophthalmology
DX: H25.812 Combined forms of age-related cataract, left eye (principal); I10 Essential (primary) hypertension; G47.33 Obstructive sleep apnea (adult) (pediatric); E66.01 Morbid (severe) obesity due to excess calories; Z68.41 Body mass index [BMI] 40.0-44.9, adult; J45.909 Unspecified asthma, uncomplicated; K21.9 Gastro-esophageal reflux disease without esophagitis; E78.00 Pure hypercholesterolemia, unspecified
CPT/HCPCS: 66984; A9270; J3490; J7120

== ENCOUNTER 2023-07-15 08:00 | Outpatient (CLI) | payer MEDICARE | END 2023-07-15 23:59 | disposition home or self-care (01) | LOC: LAB.N 08:00 | PROVIDERS: ATTEND Physician Assistant Medical | DX: R30.0 Dysuria (principal) | CPT/HCPCS: 87086 ==

== ENCOUNTER 2023-07-20 08:00 | Outpatient (CLI) | payer MEDICARE | END 2023-07-20 23:59 | disposition home or self-care (01) | LOC: LAB 08:00 | PROVIDERS: ATTEND Registered Nurse | DX: R30.0 Dysuria (principal) | CPT/HCPCS: 87086 ==

== ENCOUNTER 2023-09-17 16:13 | Outpatient (CLI) | payer MEDICARE ==
[2023-09-17 16:45] LABS: ALBUMIN 4.2 g/dL (3.2-5.5); ALBUMIN/GLOBULIN RATIO 1.3 (1.0-2.2); ALKALINE PHOSPHATASE 76 IU/L (42-121); ALT ALANINE AMINOTRANSFERASE 18 IU/L (10-60); AST ASPARTATE AMINOTRANSFERASE 17 IU/L (10-42); BILIRUBIN,TOTAL 0.4 mg/dL (0.2-1.0); BUN - BLOOD UREA NITROGEN 30 mg/dL (6-20); CALCIUM 9.7 mg/dL (8.5-10.3); CARBON DIOXIDE - CO2 30 mmol/L (21-32); CHLORIDE 103 mmol/L (101-111); CHOL/HDL RATIO 3.5 (<4.4); CHOLESTEROL 202 mg/dL; CREATININE 0.8 mg/dL (0.6-1.3); GFR - MDRD 71 (>89); GLUCOSE 106 mg/dL (74-104); HDL CHOLESTEROL 57 mg/dL; LDL CHOLESTEROL,CALCULATED 103 mg/dL; LDL/HDL RATIO 1.8 (<4.4); POTASSIUM 4.3 mmol/L (3.5-4.5); SODIUM 138 mmol/L (135-145); TOTAL PROTEIN 7.4 g/dL (6.4-8.9); TRIGLYCERIDES 210 mg/dL; VLDL CHOLESTEROL 42 mg/dL
== END 2023-09-17 16:14 | disposition home or self-care (01) ==
LOC: LAB 16:13
PROVIDERS: ATTEND Physician Assistant Medical
DX: E78.5 Hyperlipidemia, unspecified (principal)
CPT/HCPCS: 36415; 80053; 80061; 83721

== ENCOUNTER 2023-10-01 18:30 | Outpatient (CLI) | payer MEDICARE ==
--- NOTE | 2023-10-02 15:21 | Ultrasound Report ---
PROCEDURE: Pelvic w/Transvaginal INDICATIONS: UTERINE ANOMALY TECHNIQUE: Real-time scanning was performed of the pelvic organs, with image documentation. Additional endovagi nal scanning was necessary due to incomplete visualization of the adnexal and endometrial structures by transabdominal scanning. COMPARISON: CT of abdomen and pelvis dated 09/03/2023 and 01/01/2023. FINDINGS: Uterus: Uterus is anteverted and normal in size at 7.5 x 4.1 x 5.4 cm. The myometrium is homogeneou s. 1.76 x 1.67 x 1.67 cm intramural fibroid is noted in fundus of uterus. The endometrium measures 5 mm in combined thickness. Multiple echogenic foci are noted within endocervical canal measures 2.2 x 1.6 x 1.7 cm near fundus, 0.7 x 0.5 x 0.8 cm in mid endometrium, and 1.1 x 0.5 x 0.[address] [place] ira rine segment. No endometrial fluid is seen. Ovaries: Bilateral ovaries are not visualized. No gross adnexal mass. Other: No pathologic free abdo kerry or pelvic fluid. IMPRESSION: 1. Single intramural fibroid within fundus of uterus as above. 2. Thickened endometrium with heterogeneous echotexture and suggestion of multiple echogenic and adán d appearing endometrial lesions measures up to 2.2 x 1.6 x 1.7 cm in size. Finding may represent poly ps within the endometrium, suggest BLENDING TECHNICIAN correlation. 3. Bilateral ovaries are not visualized. No adnexal mass. Reviewed by: Nikhil Carrion MD on 10/02/2023 3:20 PM PDT Approved by: Nikhil Carrion MD on 10/02/2023 3:20 PM PDT Station ID: [id number]
== END 2023-10-01 18:31 | disposition home or self-care (01) ==
LOC: DI 18:30
PROVIDERS: ATTEND Physician Assistant Medical
DX: D25.1 Intramural leiomyoma of uterus (principal); R93.89 Abnormal findings on diagnostic imaging of other specified body structures

== ENCOUNTER 2023-10-25 08:00 | Outpatient (CLI) | payer MEDICARE | END 2023-10-25 23:59 | disposition home or self-care (01) | LOC: LAB 08:00 | PROVIDERS: ATTEND Physician Assistant Medical | DX: R30.0 Dysuria (principal) | CPT/HCPCS: 87086 ==

== ENCOUNTER 2023-10-31 14:26 | Emergency (ER) | payer MEDICARE ==
--- NOTE | 2023-10-31 14:42 | ED Physician Documentation ---
PD HPI ABD PAIN - Stated complaint Stated Complaint: LOWER RT ABD PX - Chief complaint Chief Complaint: Abd Pain - Additional information Additional information: 67-year-old female with history of hypertension, hypercholesterolemia, heart mur mur, stomach tumor surgically excised, appendectomy, GERD, kidney stones presents to the emergency department for right lower quadrant pain. Patient says that this has been ongoing now for about a month pain is well-controlled with Tylenol ibuprofen no nausea vomiting normal bowel movements she said that she saw her primary care provider a couple weeks ago and had a urinalysis test done which was found to be unremarkable and presents emergency department today because she is concerned that is getting worse when the pain does come and more severe to the point where she is unable to ambulate due to the severity of the pain. PD PAST MEDICAL HISTORY - Past Medical History Past Medical History: Yes Cardiovascular: Hypertension, High cholesterol, Murmur Respiratory: Asthma, Shortness of breath, Sleep apnea Neuro: None Endocrine/Autoimmune: None GI: GERD FORK LIFT MECHANIC: None : Incontinence, Frequency, Kidney stones HEENT: Chronic vision loss Psych: None Musculoskeletal: Chronic back pain Derm: None - Past Surgical History Past Surgical History: Yes General: Appendectomy Ortho: Spine surgery HEENT: Tonsil/Adenoidectomy - Present Medications Home Medications: Ambulatory Orders Medication Instructions Recorded Confirmed Calcium Carbonate [Calcium] 600 mg ORAL BID 01/12/22 10/31/23 Cholecalciferol (Vitamin D3) 1,200 mcg ORAL DAILY 01/12/22 10/31/23 [Vitamin D3] Gabapentin [Gralise] 300 mg ORAL BID MDD 1200 01/12/22 10/31/23 Iron,Carbonyl/Ascorbic Acid [Fe C 1 tab ORAL DAILY 01/12/22 10/31/23 Tablet] Losartan [Cozaar] 60 mg ORAL BID 01/12/22 10/31/23 Magnesium Citrate 100 mg ORAL DAILY 01/12/22 10/31/23 Multivit-Min/Iron/Folic/Lutein 1 tab ORAL DAILY 01/12/22 10/31/23 [Multivitamin Women 50 Plus Tab] Omega3,5,6,7,9 No.1/[place] Oil 1 tab ORAL DAILY 01/12/22 10/31/23 [Complete [place] Softgel] Pravastatin [Pravachol] 40 mg ORAL HS 01/12/22 10/31/23 Zinc Gluconate [Zinc] 1 tab ORAL BID 01/12/22 10/31/23 amLODIPine [Norvasc] 5 mg ORAL HS 05/08/22 10/31/23 oxyBUTYnin chloride [Oxybutynin 5 mg PO BID 05/08/22 10/31/23 Chloride] Albuterol Sulfate [Proair 2 puffs IH Q4HR PRN 05/22/23 10/31/23 Digihaler] Ascorbic Acid [Vitamin C] 2,200 mg PO BID 05/22/23 10/31/23 - Allergies Allergies/Adverse Reactions: Allergies Allergy/AdvReac Type Severity Reaction Status Date / Time fentanyl AdvReac Mild Dizziness Verified 10/31/23 14:38 - Social History Does the pt smoke?: No Smoking Status: Never smoker Does the pt drink ETOH?: No Does the pt have substance abuse?: No - Immunizations Immunizations are current?: Yes - POLST Patient has POLST: No PD ED PE NORMAL - Vitals Vital signs reviewed: Yes - General General: Alert and oriented X 3, No acute distress, Well developed/nourished - HEENT HEENT: Atraumatic, PERRL - Cardiac Cardiac: RRR, Other (murmur) - Respiratory Respiratory: No respiratory distress - Abdomen Abdomen: Normal bowel sounds, Soft, Non tender, Non distended, No organomegaly - Back Back: No CVA TTP - Derm Derm: Normal color, Warm and dry, No rash - Extremities Extremities: No edema Results - Vitals Vitals: Vital Signs - 24 hr 10/31/23 10/31/23 10/31/23 14:28 16:38 18:20 Temperature 36.4 C L 36.4 C L Heart Rate 91 75 78 Respiratory 17 17 18 Rate Blood Pressure 147/99 H 193/91 H 192/92 H O2 Saturation 99 100 97 Oxygen O2 Source Room air - Labs Labs: Laboratory Tests 10/31/23 10/31/23 10/31/23 14:48 14:48 15:00 WBC 7.6 RBC 4.27 Hgb 12.4 Hct 39.4 MCV 92.3 MCH 29.0 MCHC 31.5 L RDW 13.4 Plt Count 309 MPV 10.2 Neut # (Auto) 4.0 Lymph # (Auto) 2.6 [place] # (Auto) 0.6 Eos # (Auto) 0.2 Baso # (Auto) 0.1 Absolute Nucleated RBC 0.00 Nucleated RBC % 0.0 Sodium 140 Potassium 3.9 Chloride 108 Carbon Dioxide 25 Anion Gap 7.0 BUN 23 H Creatinine 0.7 Estimated GFR (MDRD) 83 L Glucose 88 Calcium 9.4 Magnesium 2.0 Total Bilirubin 0.4 AST 17 ALT 15 Alkaline Phosphatase 61 Total Protein 7.2 Albumin 4.1 Globulin 3.1 Albumin/Globulin Ratio 1.3 Lipase 25 Urine Color YELLOW Urine Clarity HAZY Urine pH 5.5 Ur Specific [place] 1.025 Urine Protein NEGATIVE Urine Glucose (UA) NEGATIVE Urine Ketones TRACE Urine Occult Blood NEGATIVE Urine Nitrite NEGATIVE Urine Bilirubin NEGATIVE Urine Urobilinogen 0.2 (NORMAL) Ur Leukocyte Esterase SMALL H Urine RBC 0-5 Urine WBC 11-25 H Ur Epithelial Cells FEW Transitional Ur Squamous Epith Cells MOD Squamous H Urine Bacteria Few Ur Microscopic Review INDICATED Urine Culture Comments NOT INDICATED - Rads (name of study) CT abdomen pelvis with Relevant Findings:: Final report received, EMP independent interpretation of test, Other (Endometrial thickening concerning for possible endometrial carcinoma. Liver hemangioma. No other acute findings noted) PD Medical Decision Making - ED course ED course: 67-year-old female presents emergency department for right lower quadrant pain. Appendicitis is not on the differential she has already had an appendectomy. She is postmenopausal for about the last 10 to [address] abdomen pelvis was complete for further evaluation given that this has been ongoing now for about a month or so ovarian torsion is less likely patient denies any vaginal bleeding or vaginal pain. CT shows no acute findings to explain the right lower quadrant pain although patient does have thickened endometrium concerning for possible endometrial carcinoma. She denies any abdominal pain or pelvic pain here in the emergency department says that Tylenol ibuprofen do completely alleviate her pain and her symptoms she is told to follow-up with her hvac engineer outpatient who she already has care established with she is given return precautions and was told to continue to take her Tylenol ibuprofen for any pain or discomfort. All questions answered patient safe for discharge return precautions given. Departure - Departure Disposition: 01 Home, Self Care Clinical Impression: Abdominal pain, Thickened endometrium Instructions: Abdominal Pain Comments: Thank you for trusting us with your care. We have completed an abdominal CT and what we are finding is that you have a thickened endometrium which is concerning for possible endometrial carcinoma. I have attached the CT results below for your reading hide follow-up with your primary care provider soon as possible to establish care with a hvac engineer for further evaluation and workup of this. INDICATIONS: RLQ pain, no appendix CONTRAST: 100ml [id number] TECHNIQUE: After the administration of intravenous contrast, a CT scan of the abdomen and pelvis was performed. Images were recorded and evaluated at appropriate window settings. Reformats: coronal and sagittal. For radiation dose reduction, the following was used: automated exposure control, adjustment of mA and/or kV according to patient size. COMPARISON: 08/14/2023 FINDINGS: Image quality: Diagnostic. Lower chest: Unremarkable. Liver: Again noted is a peripherally enhancing right lobe liver lesion which has previously been identified as a hemangioma. Also noted is flash filling of a tiny liver dome hemangioma, also previously seen.. Gallbladder: No radiopaque stones or wall thickening. Biliary tree: No intrahepatic or extrahepatic dilation, accounting for age. Spleen: No splenomegaly. Pancreas: No pancreatic ductal dilation. Adrenals: No adrenal nodule. Kidneys and ureters: No hydronephrosis. No renal cystic lesion which requires follow up. No solid mass. 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 Stomach, bowel and peritoneum: Gastric lupillo related to excision of a previous gastric mass. No gastric or small bowel dilation. No abnormal wall thickening. No pathologic free fluid. Lymph nodes: No central or retroperitoneal adenopathy. Vessels: No infrarenal aortic aneurysm. Patent portal vein. PELVIS Reproductive organs: Continued abnormal thickening of the endometrial cavity in a is menopausal female. Consider endometrial carcinoma.. Bladder: No abnormal wall thickening, accounting for underdistention. Pelvic lymph nodes: No pelvic adenopathy by size criteria. Bones: No aggressive osseous animality. Lower lumbar surgical fusion hardware with metallic artifact. Associated posterior decompressive surgery. Other: No significant ventral or inguinal hernia. IMPRESSION: 1. No acute findings noted. No findings which explain right lower quadrant pain. 2. Again noted are suspicious findings involving the uterus, potentially representing endometrial carcinoma. 3. Postoperative gastric findings. No recurrent mass noted. 4. No metastatic disease noted. 5. Liver hemangiomata. Comment: If the patient has not yet seen a hvac engineer for the thickened endometrium, recommend referral. Reviewed by: Andre Levy MD on 10/31/2023 5:34 PM PDT Forms: PCP List Discharge Date/Time: 10/31/23 18:27
[2023-10-31] MEDS ORDERED: iohexoL-300 100 ML VIAL ONE (14:43)
[2023-10-31 15:02] LABS: BASOPHILS # (AUTO) 0.1 10^3/uL (0.0-0.1); BASOPHILS % (AUTO) 0.8 %; EOSINOPHILS # (AUTO) 0.2 10^3/uL (0.0-0.7); EOSINOPHILS % (AUTO) 3.1 %; HCT - HEMATOCRIT 39.4 % (37.0-47.0); HGB - HEMOGLOBIN 12.4 g/dL (12.0-16.0); LYMPHOCYTES # (AUTO) 2.6 10^3/uL (1.5-3.5); LYMPHOCYTES % (AUTO) 34.6 %; MEAN CORPUSCULAR HGB CONC 31.5 g/dL (32.0-36.0); MEAN CORPUSCULAR VOLUME 92.3 fL (81.0-99.0); MEAN PLATELET VOLUME 10.2 fL (7.9-10.8); MONOCYTES # (AUTO) 0.6 10^3/uL (0.0-1.0); MONOCYTES % (AUTO) 8.4 %; NEUTROPHILS % (AUTO) 52.8 %; PLT - PLATELET COUNT 309 10^3/uL (130-450); RED BLOOD COUNT 4.27 10^6/uL (4.20-5.40); RED CELL DISTRIBUTION WIDTH 13.4 % (12.0-15.0); WHITE BLOOD COUNT 7.6 x10^3/uL (4.8-10.8)
[2023-10-31 15:08] LABS: BILIRUBIN,URINE NEGATIVE (NEGATIVE); CLARITY,URINE HAZY (CLEAR); GLUCOSE, URINE (UA) NEGATIVE (NEGATIVE); KETONES,URINE (UA) TRACE mg/dL (NEGATIVE); LEUKOCYTE ESTERASE, URINE SMALL (NEGATIVE); NITRITE,URINE NEGATIVE (NEGATIVE); OCCULT BLOOD,URINE NEGATIVE (NEGATIVE); PH,URINE 5.5 PH (5.0-7.5); PROTEIN,URINE NEGATIVE (NEGATIVE); UROBILINOGEN,URINE 0.2 (NORMAL) E.U./dL (NORMAL)
[2023-10-31 15:19] LABS: ALBUMIN 4.1 g/dL (3.2-5.5); ALBUMIN/GLOBULIN RATIO 1.3 (1.0-2.2); BILIRUBIN,TOTAL 0.4 mg/dL (0.2-1.0); CALCIUM 9.4 mg/dL (8.5-10.3); CREATININE 0.7 mg/dL (0.6-1.3); POTASSIUM 3.9 mmol/L (3.5-4.5); TOTAL PROTEIN 7.2 g/dL (6.4-8.9)
[2023-10-31 15:23] LABS: BACTERIA,URINE Few /HPF (None Seen); EPITHELIAL CELLS,UR FEW Transitional /HPF (<= Few); RBC,URINE 0-5 /HPF (0-5); SQUAMOUS EPITHELIAL CELL,UR MOD Squamous (<= Few)
[2023-10-31] MEDS: iohexoL-300 100 ML VIAL IVP ONE (15:59)
--- NOTE | 2023-10-31 17:36 | CT Report ---
PROCEDURE: Abdomen/Pelvis W INDICATIONS: RLQ pain, no appendix CONTRAST: 100ml [id number] TECHNIQUE: After the administration of intravenous contrast, a CT scan of the abdomen and pelvis was performed. Images were recorded and evaluated at appropriate window settings. Reformats: coronal and sagittal. F or radiation dose reduction, the following was used: automated exposure control, adjustment of mA and /or kV according to patient size. COMPARISON: 08/14/2023 FINDINGS: Image quality: Diagnostic. Lower chest: Unremarkable. Liver: Again noted is a peripherally enhancing right lobe liver lesion which has previously been iden tified as a hemangioma. Also noted is flash filling of a tiny liver dome hemangioma, also previously seen.. Gallbladder: No radiopaque stones or wall thickening. Biliary tree: No intrahepatic or extrahepatic dilation, accounting for age. Spleen: No splenomegaly. Pancreas: No pancreatic ductal dilation. Adrenals: No adrenal nodule. Kidneys and ureters: No hydronephrosis. No renal cystic lesion which requires follow up. No solid mas s. 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 Stomach, bowel and peritoneum: Gastric lupillo related to excision of a previous gastric mass. No gas tric or small bowel dilation. No abnormal wall thickening. No pathologic free fluid. Lymph nodes: No central or retroperitoneal adenopathy. Vessels: No infrarenal aortic aneurysm. Patent portal vein. PELVIS Reproductive organs: Continued abnormal thickening of the endometrial cavity in a is menopausal femal e. Consider endometrial carcinoma.. Bladder: No abnormal wall thickening, accounting for underdistention. Pelvic lymph nodes: No pelvic adenopathy by size criteria. Bones: No aggressive osseous animality. Lower lumbar surgical fusion hardware with metallic artifact. Associated posterior decompressive surgery. Other: No significant ventral or inguinal hernia. IMPRESSION: 1. No acute findings noted. No findings which explain right lower quadrant pain. 2. Again noted are suspicious findings involving the uterus, potentially representing endometrial car cinoma. 3. Postoperative gastric findings. No recurrent mass noted. 4. No metastatic disease noted. 5. Liver hemangiomata. Comment: If the patient has not yet seen a executive meeting manager for the thickened endometrium, recommend refe rral. Reviewed by: Andre Levy MD on 10/31/2023 5:34 PM PDT Approved by: Andre Levy MD on 10/31/2023 5:34 PM PDT Station ID: [id number]
[2023-10-31 18:31] VITALS: BP 192/92; O2SAT 97
== END 2023-10-31 18:27 | disposition home or self-care (01) ==
LOC: ED 14:26
DX: R10.31 Right lower quadrant pain (principal); R93.89 Abnormal findings on diagnostic imaging of other specified body structures
CPT/HCPCS: 36415; 74177; 80053; 81001; 83690; 83735; 85025; 99284; Q9967; 81003; 87086

== ENCOUNTER 2023-11-14 07:12 | Day surgery (SDC) | payer MEDICARE ==
[2023-11-14] MEDS: LACTATED RINGERS 1,000 ML IV ONE ×2 (07:20→09:37)
[2023-11-14] MEDS ORDERED: PROPOFOL 500 MG/50 ML 0 MG/0 ML VIAL ONE (07:57)
[2023-11-14] MEDS ORDERED: fentaNYL 100 MCG/2 ML VIAL ONE (08:05)
--- NOTE | 2023-11-14 08:25 | ANESTHESIA ---
Pre-Anesthesia VS, & Labs - Diagnosis uterine abnormality - Procedure hysterscopy, D&C Vital Signs: Temp Pulse Resp BP Pulse Ox O2 Flow Rate 36.4 C L 63 15 137/75 H 95 11/14/23 07:38 11/14/23 07:38 11/14/23 07:38 11/14/23 07:38 11/14/23 07:38 Height: 5 ft 5 in Weight (kg): 118.2 kg Body Mass Index: 43.3 BMI Classification: Morbidly Obese - NPO >8 hours - Is Patient ?: No Home Medications and Allergies Home Medications: Ambulatory Orders Acetaminophen [Tylenol] 650 mg PO Q6H PRN 11/05/23 Cyanocobalamin (Vitamin B-12) [Vitamin B-12 (1000 mcg sublingual)] 5,000 mcg SL DAILY 11/05/23 Ferrous Sulfate 325 mg PO BID 11/05/23 Ibuprofen [Motrin] 600 mg PO Q6H PRN 11/05/23 Melatonin 10 mg PO QPM 11/05/23 Calcium Carbonate [Calcium] 600 mg ORAL BID 01/12/22 Cholecalciferol (Vitamin D3) [Vitamin D3] 5,000 mcg ORAL DAILY 01/12/22 Gabapentin [Gralise] 300 mg ORAL QPM MDD 1200 01/12/22 Losartan [Cozaar] 50 mg ORAL BID 01/12/22 Multivit-Min/Iron/Folic/Lutein [Multivitamin Women 50 Plus Tab] 1 tab ORAL DAILY 01/12/22 Pravastatin [Pravachol] 40 mg ORAL HS 01/12/22 amLODIPine [Norvasc] 5 mg ORAL HS 05/08/22 oxyBUTYnin chloride [Oxybutynin Chloride] 5 mg PO BID 05/08/22 Albuterol Sulfate [Proair Digihaler] 2 puffs IH Q4HR PRN 05/22/23 Ascorbic Acid [Vitamin C] 2,200 mg PO BID 05/22/23 Acetaminophen [Tylenol] 650 mg PO Q6H PRN 11/05/23 Cyanocobalamin (Vitamin B-12) [Vitamin B-12 (1000 mcg sublingual)] 5,000 mcg SL DAILY 11/05/23 Ferrous Sulfate 325 mg PO BID 11/05/23 Ibuprofen [Motrin] 600 mg PO Q6H PRN 11/05/23 Melatonin 10 mg PO QPM 11/05/23 Allergies/Adverse Reactions: Allergies Allergy/AdvReac Type Severity Reaction Status Date / Time fentanyl AdvReac Nausea Verified 11/14/23 07:26 Anes History & Medical History - Anesthetic History Anesthesia Complications: reports: No previous complications - Medical History Cardiovascular: reports: Hypertension, High cholesterol, Murmur Pulmonary: reports: Asthma, Sleep apnea (Does not use cpap) Gastrointestinal: reports: GERD Urinary: reports: Incontinence, Frequency, Kidney stones Neuro: reports: None Musculoskeletal: reports: Chronic back pain Endocrine/Autoimmune: reports: None Blood Disorders: reports: None Skin: reports: None Smoking Status: Never smoker Psychosocial: reports: No issues indicated 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) - Surgical History General: reports: Appendectomy Eyes Ears Nose Throat (EENT): reports: Cataracts, Tonsil/Adenoidectomy Urologic: Orthopedic: reports: Spine surgery Exam General: Alert, Oriented x3, Cooperative, No acute distress Dental: Loose/Frag Mouth Openin Fingerbreadth Neck Mobility: Normal Mallampati classification: II Thyromental Distance: 4-6 cm Mental/Cognitive Status: Alert/Oriented X3, Normal for patient Plan Anesthesia Type: General Consent for Procedure(s) Verified and Reviewed: Yes Code Status: Attempt Resuscitation ASA classification: 3-Severe systemic disease Is this case an emergency?: No
[2023-11-14] MEDS ORDERED: MORPHINE 2 MG/ML CARPUJECT IVP PRN (08:30)
[2023-11-14] MEDS ORDERED: HYDROmorphone 0.5 MG/0.5 ML SYRINGE IVP PRN (08:30)
[2023-11-14] MEDS ORDERED: ATROPINE ABBOJECT 1 MG/10 ML SYRINGE IVP PRN (08:30)
[2023-11-14] MEDS ORDERED: ONDANSETRON 4 MG/2 ML VIAL IVP PRN (08:30)
[2023-11-14] MEDS ORDERED: NALOXONE 0.4 MG/ML VIAL IVP PRN (08:30)
[2023-11-14] MEDS ORDERED: PROPOFOL 200 MG/20 ML VIAL IVP ONE (08:33)
[2023-11-14] MEDS ORDERED: HYDROmorphone 1 MG/ML CARPUJECT ONE (08:34)
[2023-11-14] MEDS ORDERED: SODIUM CHLORIDE 0.9% 10 ML VIAL IVP ONE (08:35)
[2023-11-14] MEDS ORDERED: LACTATED RINGERS 1,000 ML IV SCH (09:00)
[2023-11-14] MEDS ORDERED: ePHEDrine 50 MG/ML VIAL IVP ONE (09:13)
[2023-11-14] MEDS ORDERED: DEXAMETHASONE 4 MG/ML VIAL ONE (09:15)
[2023-11-14] MEDS ORDERED: ONDANSETRON 4 MG/2 ML VIAL ONE (09:15)
[2023-11-14 09:39] VITALS: O2SAT 97
[2023-11-14] MEDS ORDERED: oxyCODONE 5 MG TABLET PO PRN (09:57)
--- NOTE | 2023-11-14 10:00 | OPERATIVE REPORT ---
Operative Report - General Procedure Date: 11/14/23 Planned Procedure: Hysteroscopy removal of polyps, D&C Pre-Op Diagnosis: abnormal endometrium noted on CT scan Procedure Performed: hysteroscopy with removal of polyps. D&C Post Op Diagnosis: endometrial polyps - Procedure Note Primary Surgeon: Hailey Carter MD Anesthesia Provider: Linda Dupont CRNA Anesthesia Technique: General LMA Pathology: endometrial curettings. IV Fluids (mL): 1,000 Estimated Blood Loss (mL): 10 Urine Output (mL): 20 (incontinent of some urine ) Indications: abnormal endometrium noted on CT and then ultrasound done for GIST surveillance. Findings: polyps within uterus. Uterus is arcuate in shape. multiple vulvar skin tags. Complications: none - Other Other Information/Narrative: Patient had a CT for GIST on Stomach as follow up. Found abnormal uterine lining. Ultrasound done and appears to have polyps. Here for hysteroscopy to remove polyps. She has signed the appopriate consent forms. She is brought to OR where LMA anesthesia is administered. She is prepped and draped with legs in Brandon stirrups. Time out done. exam under anesthesia is performed. Speculum is placed. Cervix is dilated to allow 6 mm scope to enter. Hysteroscope is placed. Saline used for distention. Polyps noted. MyoSure Reach used to remove. After this there are still small bumps on lining that appear unusual but all over. Sharp curettage is done. cavity is reexamined. Procedure finished. No complications. Patient is awakened and brought to her room and will go home later today.
[2023-11-14 10:15] VITALS: BP 162/74
--- NOTE | 2023-11-14 13:22 | ANESTHESIA POST OP EVALUATION ---
Anesthesia Post Eval - Post Anesthesia Eval Vitals: Last Vital Signs Temp 36.2 C L 11/14/23 10:04 Pulse 63 11/14/23 10:10 Resp 16 11/14/23 10:10 BP 162/74 H 11/14/23 10:10 Pulse Ox 97 11/14/23 10:10 O2 Flow Rate CV Function Including HR & BP: Stable Pain Control: Satisfactory Nausea & Vomiting: Negative Mental Status: Baseline Respiratory Status: Airway Patent Hydration Status: Satisfactory Anesthesia Complications: None
== END 2023-11-14 07:13 | disposition home or self-care (01) ==
LOC: SDS 07:12
PROVIDERS: ATTEND Obstetrics & Gynecology
PROC: 0UB98ZZ Excision of Uterus, Via Natural or Artificial Opening Endoscopic (ICD-10-PCS; principal; 2023-11-14 08:45)
DX: N84.0 Polyp of corpus uteri (principal); N90.89 Other specified noninflammatory disorders of vulva and perineum; E66.01 Morbid (severe) obesity due to excess calories; Z68.41 Body mass index [BMI] 40.0-44.9, adult; J45.909 Unspecified asthma, uncomplicated; I10 Essential (primary) hypertension; G47.30 Sleep apnea, unspecified
CPT/HCPCS: 58558; J1170; J7120